=== PATIENT | female | born 1975 | race African-American/Black ===

== ENCOUNTER 2016-08-03 16:02 | Emergency (ER) | payer MEDICAID ==
[~2016-08-03] VITALS: Ht 160 cm; Wt 120.0 kg
[~2016-08-03 16:02] MED LIST: ADVAI250I PO; ALBU1AER INH; IBUP600T26 PO; LEVO50TA4 PO; LORA5SOL3 PO; METF500 PO; MONT10TA2 PO; PROZ40CA PO; RISP4TAB2 PO; TRIA37.512 PO; TRIH5 PO
[2016-08-03 16:05] VITALS: BP 124/69; PULSE 130; RESP 20; TEMP 99.5; O2SAT 96
--- NOTE | 2016-08-03 17:11 | PD ---
Physical Exam Date Seen by Provider: August 03, 2016 Time Seen by Provider: 17:09 Narrative Pt presents with bilateral leg cramping and pain for the last few months. Worse with walking and at night. Pt states she told her PCP but no treatment per her report. Pt denies any PMHx. VSS, awaiting bed placement. Data Data Last Documented VS Vital Signs Date Time Temp Pulse Resp B/P Pulse Ox O2 Delivery O2 Flow Rate FiO2 08/03/16 16:05 99.5 130 20 124/69 96 Room Air MDM Supervised Visit with ABDON: Diana Velázquez August 03, 2016 17:11
[2016-08-03] MEDS ORDERED: TRIH5TAB2 PO (18:10)
[2016-08-03] MEDS ORDERED: PROZ40CA PO (18:10)
[2016-08-03] MEDS ORDERED: LEVO.05 PO (18:10)
[2016-08-03 18:41] LABS: AUTOMATED NEUTROPHIL # 5.5 TH/MM3 (1.8-7.7); BASOPHIL # 0.1 TH/MM3 (0-0.2); BASOPHIL % 1.6 % (0.0-2.0); EOSINOPHIL # 0.1 TH/MM3 (0-0.4); EOSINOPHIL % 1.6 % (0.0-4.0); HEMATOCRIT 39.5 % (35.0-46.0); HEMO FLAGS DIFF FINAL; LYMPH % 21.5 % (9.0-44.0); LYMPHOCYTE # 1.8 TH/MM3 (1.0-4.8); MEAN CELL VOLUME 81.4 FL (80.0-100.0); MEAN CORPUSCULAR HEMOGLOBIN 26.1 PG (27.0-34.0); MEAN CORPUSCULAR HGB CONC 32.1 % (32.0-36.0); NEUT % 67.3 % (16.0-70.0); PLATELET COUNT 306 TH/MM3 (150-450); RED BLOOD COUNT 4.86 MIL/MM3 (4.00-5.30); RED CELL DISTRIBUTION WIDTH 14.9 % (11.6-17.2); WHITE BLOOD COUNT 8.2 TH/MM3 (4.0-11.0)
[2016-08-03 18:58] LABS: BICARBONATE 21.4 MEQ/L (21.0-32.0)
--- NOTE | 2016-08-03 19:25 | PD ---
HPI Chief Complaint: Pain: Acute or Chronic Time Seen by Provider: 18:01 Travel History International Travel<30 days: No Contact w/Intl Traveler<30days: No Traveled to known affect area: No History of Present Illness HPI Patient is a 41-year-old female who presents to emergency room for evaluation of bilateral lower extremity pain and cramping. Patient reports that for the past 2 months, she has had increased cramping to her calfs. Patient denies any history of PE or DVT, denies any recent travels/trips. Reports no chest pain/ sob. NO other c/o. PFSH Past Medical History Arthritis: No Asthma: Yes Autoimmune Disease: No Blood Disorders: No Bipolar Disorder: Yes Anxiety: Yes Depression: Yes Heart Rhythm Problems: No Cancer: No Cardiovascular Problems: No High Cholesterol: No Chemotherapy: No Chest Pain: No Congestive Heart Failure: No COPD: No Cerebrovascular Accident: No Diabetes: Yes Diminished Hearing: No Endocrine: No Gastrointestinal Disorders: No Glaucoma: No Genitourinary: No Headaches: Yes Hepatitis: No Hypertension: No Immune Disorder: No Kidney Stones: No Musculoskeletal: No Neurologic: No Psychiatric: Yes Reproductive: No Respiratory: Yes Migraines: No Myocardial Infarction: No Radiation Therapy: No Renal Failure: No Schizophrenia: Yes Seizures: No Sickle Cell Disease: No Sleep Apnea: No Thyroid Disease: Yes Tetanus Vaccination: > 5 Years Influenza Vaccination: Yes ?: Not : 2 Para: 2 Miscarriage: 0 : 0 Tubal Ligation: Yes Past Surgical History Abdominal Surgery: Yes () AICD: No Arteriovenous Shunt: No Cardiac Surgery: No Section: Yes Cholecystectomy: No Ear Surgery: No Endocrine Surgery: No Eye Surgery: No Genitourinary Surgery: No Gynecologic Surgery: Yes (tube ligation) Insulin Pump: No Joint Replacement: No Neurologic Surgery: No Oral Surgery: No Pacemaker: No Thoracic Surgery: No Other Surgery: Yes (THYROID REMOVED) Social History Alcohol Use: No Tobacco Use: No Substance Use: No (DENIED) Allergies-Medications (Allergen,Severity, Reaction): Coded Allergies: No Known Allergies (Verified , 08/03/16) Reported Meds & Prescriptions Reported Meds & Active Scripts Active Reported Trihexyphenidyl (Trihexyphenidyl HCl) 5 Mg Tab 5 Mg PO HS Synthroid (Levothyroxine Sodium) 50 Mcg Tab 50 Mcg PO DAILY Prozac (Fluoxetine HCl) 40 Mg Cap 40 Mg PO DAILY Review of Systems General / Constitutional: No: Fever Eyes: No: Visual changes HENT: No: Headaches Cardiovascular: No: Chest Pain or Discomfort Respiratory: No: Shortness of Breath Gastrointestinal: No: Abdominal Pain Genitourinary: No: Dysuria Musculoskeletal: Positive: Cramping (b/l le's), Pain Skin: No Rash Neurologic: No: Weakness Psychiatric: No: Depression Endocrine: No: Polydipsia Hematologic/Lymphatic: No: Easy Bruising Physical Exam Narrative GENERAL: nad, nontoxic SKIN: Focused skin assessment warm/dry. HEAD: Atraumatic. Normocephalic. EYES: Pupils equal and round. No scleral icterus. No injection or drainage. ENT: No nasal bleeding or discharge. Mucous membranes pink and moist. NECK: Trachea midline. No JVD. CARDIOVASCULAR: Regular rate and rhythm. No murmur appreciated. RESPIRATORY: No accessory muscle use. Clear to auscultation. Breath sounds equal bilaterally. GASTROINTESTINAL: Abdomen soft, non-tender, nondistended. Hepatic and splenic margins not palpable. MUSCULOSKELETAL: No obvious deformities. No clubbing. No cyanosis. patient with cramping and pain to her calfs b/l NEUROLOGICAL: Awake and alert. No obvious cranial nerve deficits. Motor grossly within normal limits. Normal speech. PSYCHIATRIC: Appropriate mood and affect; insight and judgment normal. Data Data Last Documented VS Vital Signs Date Time Temp Pulse Resp B/P Pulse Ox O2 Delivery O2 Flow Rate FiO2 08/03/16 19:33 104 18 104/58 97 Room Air 08/03/16 16:05 99.5 Orders Basic Metabolic Panel (Bmp) (08/03/16 18:06) Complete Blood Count With Diff (08/03/16 18:06) Prothrombin Time / Inr (Pt) (08/03/16 18:06) Act Partial Throm Time (Ptt) (08/03/16 18:06) Ed Urine Pregnancytest Poc (08/03/16 18:06) Us Leg Venous Doppler Bilat (08/03/16 ) Sodium Chlor 0.9% 1000 Ml Inj (Ns 1000 M (08/03/16 19:30) Labs Laboratory Tests Test 08/03/16 08/03/16 18:11 18:50 White Blood Count 8.2 TH/MM3 Red Blood Count 4.86 MIL/MM3 Hemoglobin 12.7 GM/DL Hematocrit 39.5 % Mean Corpuscular Volume 81.4 FL Mean Corpuscular Hemoglobin 26.1 PG Mean Corpuscular Hemoglobin 32.1 % Concent Red Cell Distribution Width 14.9 % Platelet Count 306 TH/MM3 Mean Platelet Volume 8.5 FL Neutrophils (%) (Auto) 67.3 % Lymphocytes (%) (Auto) 21.5 % Monocytes (%) (Auto) 8.0 % Eosinophils (%) (Auto) 1.6 % Basophils (%) (Auto) 1.6 % Neutrophils # (Auto) 5.5 TH/MM3 Lymphocytes # (Auto) 1.8 TH/MM3 Monocytes # (Auto) 0.6 TH/MM3 Eosinophils # (Auto) 0.1 TH/MM3 Basophils # (Auto) 0.1 TH/MM3 CBC Comment DIFF FINAL Differential Comment Sodium Level 141 MEQ/L Potassium Level 4.0 MEQ/L Chloride Level 110 MEQ/L Carbon Dioxide Level 21.4 MEQ/L Anion Gap 10 MEQ/L Blood Urea Nitrogen 12 MG/DL Creatinine 1.10 MG/DL Estimat Glomerular Filtration 66 ML/MIN Rate Random Glucose 100 MG/DL Calcium Level 8.5 MG/DL Prothrombin Time 10.6 SEC Prothromb Time International 1.0 RATIO Ratio Activated Partial 27.1 SEC Thromboplast Time MDM Medical Decision Making Medical Screen Exam Complete: Yes Emergency Medical Condition: Yes Interpretation(s) Vital Signs Date Time Temp Pulse Resp B/P Pulse Ox O2 Delivery O2 Flow Rate FiO2 08/03/16 18:10 17 08/03/16 16:05 99.5 130 20 124/69 96 Room Air Differential Diagnosis dvt/pe, electrolyte abnormality Narrative Course Patient is a 41 year old female who presents to ER for evaluation of leg cramping x 2 months. Patient nontoxic on evaluation. labs as well as US of legs ordered to evaluate for DVT Last Impressions Lower Extremity Ultrasound 08/03/16 0000 Signed Impressions: Service Date/Time: July 20:41 - CONCLUSION: Normal examination. Jaun Souza MD Laboratory Tests Test 08/03/16 08/03/16 18:11 18:50 White Blood Count 8.2 TH/MM3 (4.0-11.0) Red Blood Count 4.86 MIL/MM3 (4.00-5.30) Hemoglobin 12.7 GM/DL (11.6-15.3) Hematocrit 39.5 % (35.0-46.0) Mean Corpuscular Volume 81.4 FL (80.0-100.0) Mean Corpuscular Hemoglobin 26.1 PG (27.0-34.0) Mean Corpuscular Hemoglobin 32.1 % Concent (32.0-36.0) Red Cell Distribution Width 14.9 % (11.6-17.2) Platelet Count 306 TH/MM3 (150-450) Mean Platelet Volume 8.5 FL (7.0-11.0) Neutrophils (%) (Auto) 67.3 % (16.0-70.0) Lymphocytes (%) (Auto) 21.5 % (9.0-44.0) Monocytes (%) (Auto) 8.0 % (0.0-8.0) Eosinophils (%) (Auto) 1.6 % (0.0-4.0) Basophils (%) (Auto) 1.6 % (0.0-2.0) Neutrophils # (Auto) 5.5 TH/MM3 (1.8-7.7) Lymphocytes # (Auto) 1.8 TH/MM3 (1.0-4.8) Monocytes # (Auto) 0.6 TH/MM3 (0-0.9) Eosinophils # (Auto) 0.1 TH/MM3 (0-0.4) Basophils # (Auto) 0.1 TH/MM3 (0-0.2) CBC Comment DIFF FINAL Differential Comment Sodium Level 141 MEQ/L (136-145) Potassium Level 4.0 MEQ/L (3.5-5.1) Chloride Level 110 MEQ/L (98-107) Carbon Dioxide Level 21.4 MEQ/L (21.0-32.0) Anion Gap 10 MEQ/L (5-15) Blood Urea Nitrogen 12 MG/DL (7-18) Creatinine 1.10 MG/DL (0.50-1.00) Estimat Glomerular Filtration 66 ML/MIN (>89) Rate Random Glucose 100 MG/DL (74-106) Calcium Level 8.5 MG/DL (8.5-10.1) Prothrombin Time 10.6 SEC (9.8-11.6) Prothromb Time International 1.0 RATIO Ratio Activated Partial 27.1 SEC Thromboplast Time (24.3-30.1) VSS. i reviewed all labs and studies with patient in detail. signs and symptoms of when to return to ER was reviewed with patient in detail. patient will have a repeat US in 1 week if symptoms persist Diagnosis Primary Impression: Leg cramping Additional Impression: Dehydration Patient Instructions: General Instructions Additional Instructions: Please follow-up with your primary care doctor Return to emergency room if symptoms worsen or persist or return Return to the emergency room as needed Please have your ultrasound repeated in 1 week if cramping persists Disposition: 01 DISCHARGE HOME Condition: Stable Madelyn Martin DO August 03, 2016 19:25
[2016-08-03 19:26] LABS: APTT (PATIENT) 27.1 SEC (24.3-30.1); PROTHROMBIN TIME - PATIENT 10.6 SEC (9.8-11.6)
[2016-08-03] MEDS ORDERED: SODIUM CHLOR 0.9% 1000 ML INJ 1,000 ML IV ONE (19:30)
[2016-08-03 19:33] VITALS: BP 104/58; PULSE 104; RESP 18; O2SAT 97
--- NOTE | 2016-08-03 21:39 | RADRPT ---
EXAM DATE/TIME: 08/03/2016 20:41 [facility] COMPARISON: No previous studies available for comparison. INDICATIONS : Bilateral leg pain. MEDICAL HISTORY : Thyroid disease. Asthma. Diabetes. Depression. Schizophrenia. Bipolar disorder. Anxiety. SURGICAL HISTORY : section.Tubal ligation. Thyroidectomy. ENCOUNTER: Initial ACUITY: 1 week PAIN SCORE: 8/10 LOCATION: Bilateral leg. TECHNIQUE: Venous ultrasound of the left and right leg was performed from the inguinal ligament to the proximal calf. Real-time, color Doppler and spectral tracing, compression and augmentation techniques were us ed. FINDINGS: RIGHT LEG: There is normal compressibility of the deep venous system from the inguinal region to the proximal ca lf. No echogenic clot is seen in the lumen of the common femoral, femoral, popliteal, and posterior tibial veins. There is a normal response of the venous system to proximal and distal augmentation an d respiration. LEFT LEG: There is normal compressibility of the deep venous system from the inguinal region to the proximal ca lf. No echogenic clot is seen in the lumen of the common femoral, femoral, popliteal, and posterior tibial veins. There is a normal response of the venous system to proximal and distal augmentation an d respiration. CONCLUSION: Normal examination. Jaun oSuza MD on August 03, 2016 at 21:37 Board Certified Radiologist. This report was verified electronically.
[2016-08-03 22:20] VITALS: BP 105/74
== END 2016-08-03 22:20 | disposition home or self-care (01) ==
LOC: NEPD 16:02
DX: M62.831 Muscle spasm of calf (principal); E86.0 Dehydration; M79.604 Pain in right leg; J45.909 Unspecified asthma, uncomplicated; E11.9 Type 2 diabetes mellitus without complications
CPT/HCPCS: 80048; 84703; 85025; 85610; 85730; 93970; 99284; J7030

== ENCOUNTER 2016-10-12 12:03 | Emergency (ER) | payer SELFPAY ==
[~2016-10-12] VITALS: Ht 160 cm; Wt 110.0 kg
[~2016-10-12 12:03] MED LIST changes: -ADVAI250I PO; -ALBU1AER INH; -IBUP600T26 PO; +LEVO.05 PO; -LEVO50TA4 PO; -LORA5SOL3 PO; -METF500 PO; -MONT10TA2 PO; -RISP4TAB2 PO; -TRIA37.512 PO; -TRIH5 PO; +TRIH5TAB2 PO
[2016-10-12 12:06] VITALS: BP 114/65; PULSE 100; RESP 20; TEMP 98.7; O2SAT 99
--- NOTE | 2016-10-12 12:21 | PD ---
Physical Exam Time Seen by Provider: 12:20 Narrative 41 y/o female with hx of asthma presents with sob, h/a for 2 days. Vital signs reviewed. Seen at triage desk. Awaiting bed placement. Data Data Last Documented VS Vital Signs Date Time Temp Pulse Resp B/P Pulse Ox O2 Delivery O2 Flow Rate FiO2 10/12/16 12:06 98.7 100 20 114/65 99 Room Air [facility] Medical Record Reviewed: Yes Supervised Visit with ABDON: Joe Self Oct 12, 2016 12:21
--- NOTE | 2016-10-12 12:29 | PD ---
HPI . sob yesterday Chief Complaint: Respiratory Distress Time Seen by Provider: 12:29 Travel History International Travel<30 days: No Contact w/Intl Traveler<30days: No Traveled to known affect area: No History of Present Illness HPI 41-year-old female with history of asthma here with complaints of shortness of breath. Patient says that she was intermittently short of breath for the past 2 days, and this happened yesterday. She is not short of breath today. She does have a history of asthma and uses a rescue inhaler at home. Patient tells me that she thinks she may have had an asthma attack yesterday and she wanted to come to the emergency department to be checked out. At this point she is in no signs of respiratory distress. She does not demonstrate any shortness of breath, coughing or airway compromise. She denies any other complaints. PFSH Past Medical History Arthritis: No Asthma: Yes Autoimmune Disease: No Blood Disorders: No Bipolar Disorder: Yes Anxiety: Yes Depression: Yes Heart Rhythm Problems: No Cancer: No Cardiovascular Problems: No High Cholesterol: No Chemotherapy: No Chest Pain: No Congestive Heart Failure: No COPD: No Cerebrovascular Accident: No Diabetes: Yes Diminished Hearing: No Endocrine: No Gastrointestinal Disorders: No Glaucoma: No Genitourinary: No Headaches: Yes Hepatitis: No Hypertension: No Immune Disorder: No Kidney Stones: No Musculoskeletal: No Neurologic: No Psychiatric: Yes Reproductive: No Respiratory: Yes (HX ASTHMA ) Migraines: No Myocardial Infarction: No Radiation Therapy: No Renal Failure: No Schizophrenia: Yes Seizures: No Sickle Cell Disease: No Sleep Apnea: No Thyroid Disease: Yes : 2 Para: 2 Miscarriage: 0 : 0 Tubal Ligation: Yes Past Surgical History Abdominal Surgery: Yes () AICD: No Arteriovenous Shunt: No Cardiac Surgery: No Section: Yes Cholecystectomy: No Ear Surgery: No Endocrine Surgery: No Eye Surgery: No Genitourinary Surgery: No Gynecologic Surgery: Yes (tube ligation) Insulin Pump: No Joint Replacement: No Neurologic Surgery: No Oral Surgery: No Pacemaker: No Thoracic Surgery: No Other Surgery: Yes (THYROID REMOVED) Social History Alcohol Use: No Tobacco Use: No Substance Use: No (DENIED) Allergies-Medications (Allergen,Severity, Reaction): Coded Allergies: No Known Allergies (Verified , 08/03/16) Reported Meds & Prescriptions Reported Meds & Active Scripts Active Reported Trihexyphenidyl (Trihexyphenidyl HCl) 5 Mg Tab 5 Mg PO HS Synthroid (Levothyroxine Sodium) 50 Mcg Tab 50 Mcg PO DAILY Prozac (Fluoxetine HCl) 40 Mg Cap 40 Mg PO DAILY Review of Systems General / Constitutional: No: Fever Eyes: No: Visual changes HENT: No: Headaches Cardiovascular: No: Chest Pain or Discomfort Respiratory: No: Shortness of Breath Gastrointestinal: No: Abdominal Pain Genitourinary: No: Dysuria Musculoskeletal: No: Pain Skin: No Rash Neurologic: No: Weakness Psychiatric: No: Depression Endocrine: No: Polydipsia Hematologic/Lymphatic: No: Easy Bruising Physical Exam Narrative GENERAL: AAO x 3, no acute distress, Well-nourished, well-developed patient. SKIN: Warm and dry. No visible rashes or bruising. HEAD: Normocephalic and atraumatic. EYES: No scleral icterus. No injection or drainage. ENT: No nasal drainage noted. Mucous membranes pink. Airway patent. No oropharynx abnormality NECK: Supple, trachea midline. No JVD. No lymphadenopathy CARDIOVASCULAR: Regular rate and rhythm without murmurs, gallops, or rubs. RESPIRATORY: Breath sounds equal bilaterally. No accessory muscle use. No rhonchi or rales. No wheezing GASTROINTESTINAL: Visual inspection normal EXTREMITIES: No cyanosis or edema. BACK: No obvious deformity. NEURO: CN II-12 intact, PSYCH: AAO x 3, normal affect. Data Data Last Documented VS Vital Signs Date Time Temp Pulse Resp B/P Pulse Ox O2 Delivery O2 Flow Rate FiO2 10/12/16 12:06 98.7 100 20 114/65 99 Room Air MDM Medical Decision Making Medical Screen Exam Complete: Yes Emergency Medical Condition: Yes Medical Record Reviewed: Yes Differential Diagnosis History of asthma, viral syndrome, less likely influenza, less likely pneumonia Narrative Course 41-year-old female here with 2 days of shortness of breath that last happened yesterday. On examination patient is aerating well on room air and in no signs of respiratory distress. Her examination is unremarkable. I recommend follow-up with her primary care provider for further workup with her asthma. It is possible she may need a longer acting inhaler. Patient verbalized understanding of instructions, questions were answered, and thanked me for their care. I advised them if their condition worsens, please return to the nearest emergency room for further care. Diagnosis Primary Impression: History of asthma Patient Instructions: General Instructions Additional Instructions: Please follow-up with your primary care provider. Med/Other Pt SpecificInfo: No Change to Meds Disposition: 01 DISCHARGE HOME Condition: Stable Sonya Sheridan Oct 12, 2016 12:29
== END 2016-10-12 12:52 | disposition home or self-care (01) ==
LOC: NEPK 12:03
DX: J45.909 Unspecified asthma, uncomplicated (principal)
CPT/HCPCS: 99281

== ENCOUNTER 2016-12-16 13:44 | Emergency (ER) | payer MEDICAID ==
[~2016-12-16] VITALS: Ht 160 cm; Wt 110.0 kg
[2016-12-16 13:45] VITALS: BP 120/73; PULSE 84; RESP 20; TEMP 98.6; O2SAT 99
--- NOTE | 2016-12-16 14:12 | PD ---
Physical Exam Date Seen by Provider: Dec 16, 2016 Time Seen by Provider: 14:10 Narrative 41-year-old Afro-[place] female presents the emergency department with 2 week history of left foot pain on the bottom of her foot. It is worse with ambulation. Patient states no specific injury or wound. Patient denies diabetes. Patient states she's been trying to keep it wrapped, and taking pain medication without improvement. Patient denies fever chills or other symptoms. Pain is a 9 out of 10, and worse with palpation and ambulation. X-ray of the left foot is ordered. Vital signs stable. Patient is awaiting bed placement. Data Data Last Documented VS Vital Signs Date Time Temp Pulse Resp B/P (MAP) Pulse Ox O2 Delivery O2 Flow Rate FiO2 12/16/16 13:45 98.6 84 20 120/73 (89) 99 Room Air [facility] Medical Record Reviewed: Yes Supervised Visit with ABDON: Yes Condition: Stable Stevan Narayanan Dec 16, 2016 14:12
--- NOTE | 2016-12-16 14:36 | PD ---
HPI Chief Complaint: Musculoskeletal Complaint Time Seen by Provider: 14:20 Travel History International Travel<30 days: No Contact w/Intl Traveler<30days: No Traveled to known affect area: No History of Present Illness HPI 41-year-old -[place] female presents to the emergency department with complaint of left foot pain. Patient says onset of pain occurred approximately 2 weeks ago. She describes the pain as constant but worse with ambulation. She describes the pain as sharp and stabbing in nature. She denies any injury or trauma occurring to the left foot. There is no swelling, ecchymosis, erythema, obvious deformity or signs or symptoms of infection or inflammation noted in the left foot. Patient denies any history of diabetes. Patient states she does not take any daily medication at this time. Patient denies chest pain, shortness breath, fever, chills, malaise, abdominal pain, nausea, vomiting, diarrhea or lightheadedness. PFSH Past Medical History Arthritis: No Asthma: Yes Autoimmune Disease: No Blood Disorders: No Bipolar Disorder: Yes Anxiety: Yes Depression: Yes Heart Rhythm Problems: No Cancer: No Cardiovascular Problems: No High Cholesterol: No Chemotherapy: No Chest Pain: No Congestive Heart Failure: No COPD: No Cerebrovascular Accident: No Diabetes: Yes Patient Takes Glucophage: No Diminished Hearing: No Endocrine: No Gastrointestinal Disorders: No Glaucoma: No Genitourinary: No Headaches: Yes Hepatitis: No Hypertension: No Immune Disorder: No Kidney Stones: No Musculoskeletal: No Neurologic: No Psychiatric: Yes Reproductive: No Respiratory: Yes (HX ASTHMA ) Immunizations Current: Yes Migraines: No Myocardial Infarction: No Radiation Therapy: No Renal Failure: No Schizophrenia: Yes Seizures: No Sickle Cell Disease: No Sleep Apnea: No Thyroid Disease: Yes ?: Not LMP: long time ago : 2 Para: 2 Miscarriage: 0 : 0 Tubal Ligation: Yes Past Surgical History Abdominal Surgery: Yes () AICD: No Arteriovenous Shunt: No Cardiac Surgery: No Section: Yes Cholecystectomy: No Ear Surgery: No Endocrine Surgery: No Eye Surgery: No Genitourinary Surgery: No Gynecologic Surgery: Yes ( ) Insulin Pump: No Joint Replacement: No Neurologic Surgery: No Oral Surgery: No Pacemaker: No Thoracic Surgery: No Other Surgery: Yes (THYROID REMOVED) Social History Alcohol Use: No Tobacco Use: No Substance Use: No ( ) Allergies-Medications (Allergen,Severity, Reaction): Coded Allergies: No Known Allergies (Verified , 12/16/16) Reported Meds & Prescriptions Reported Meds & Active Scripts Active Motrin Ib (Ibuprofen) 200 Mg Tablet 400 Mg PO Q6HR PRN Review of Systems Except as stated in HPI: all other systems reviewed are Neg Physical Exam Narrative GENERAL: Well-nourished well-developed 41-year-old -[place] female in no acute distress SKIN: Focused skin assessment warm/dry. HEAD: Atraumatic. Normocephalic. EYES: Pupils equal and round. No scleral icterus. No injection or drainage. ENT: No nasal bleeding or discharge. Mucous membranes pink and moist. NECK: Trachea midline. No JVD. CARDIOVASCULAR: Regular rate and rhythm. No murmur appreciated. Pedal pulses palpated bilaterally. Capillary refill within normal limits bilaterally. RESPIRATORY: No accessory muscle use. Clear to auscultation. Breath sounds equal bilaterally. GASTROINTESTINAL: Abdomen soft, non-tender, nondistended. Hepatic and splenic margins not palpable. MUSCULOSKELETAL: No obvious deformities. No clubbing. No cyanosis. No edema. Full dorsi and plantar flexion noted bilaterally. NEUROLOGICAL: Awake and alert. No obvious cranial nerve deficits. Motor grossly within normal limits. Normal speech. PSYCHIATRIC: Appropriate mood and affect; insight and judgment normal. Data Data Last Documented VS Vital Signs Date Time Temp Pulse Resp B/P (MAP) Pulse Ox O2 Delivery O2 Flow Rate FiO2 12/16/16 13:45 98.6 84 20 120/73 (89) 99 Room Air Orders Orders Foot, Complete ([id number]) (12/16/16 14:13) Ice/Cold Pack (12/16/16 14:13) [facility] Medical Decision Making Medical Screen Exam Complete: Yes Emergency Medical Condition: Yes Medical Record Reviewed: Yes Differential Diagnosis Differential diagnoses include but are not limited to plantar fasciitis, peripheral neuropathy, osteoarthritis, rheumatoid arthritis, foot fracture Narrative Course 41-year-old female in no acute distress presents to the emergency department for evaluation of left foot pain that started approximately 2 weeks ago. Patient denies any injury or trauma to the left foot. Patient states the pain is sharp and stabbing in nature and worse with ambulation. Full range of motion noted with dorsi and plantar flexion in bilateral feet. Bilateral pedal pulses palpated. Capillary refill within normal limits bilaterally. Patient denies chest pain, shortness breath, fever, malaise, abdominal pain, nausea, vomiting, diarrhea or lightheadedness. X-ray of the left foot ordered and pending. X-ray of the left foot is unremarkable. After physical assessment and test results there is no need for patient to be admitted to the hospital or for further evaluation in the emergency department. Patient will be discharged home with a prescription for Motrin and instructions to follow up with her primary care physician. Diagnosis Primary Impression: Plantar fasciitis of left foot Referrals: Primary Care Physician Patient Instructions: General Instructions, Plantar Fasciitis (ED) Additional Instructions: Take Motrin as directed as needed for pain. May elevate foot at night. Follow-up with primary care regarding foot pain. Return to the emergency Department with any worsening symptoms or emergent conditions. Med/Other Pt SpecificInfo: Prescription(s) given Scripts Ibuprofen (Motrin Ib) 200 Mg Tablet 400 MG PO Q6HR Y for pain, #12 Prov: Aleah Collado 12/16/16 Disposition: 01 DISCHARGE HOME Condition: Stable Aleah Collado Dec 16, 2016 14:36
--- NOTE | 2016-12-16 15:13 | RADRPT ---
EXAM DATE/TIME: 12/16/2016 14:27 [facility] COMPARISON: FOOT LEFT COMPLETE ([id number]), August 24, 2013, 18:21. INDICATIONS : Left foot pain for 1 week with no known injury MEDICAL HISTORY : None. SURGICAL HISTORY : None. ENCOUNTER: Initial ACUITY: 1 week PAIN SCORE: 10/10 LOCATION: Left plantar surface of foot FINDINGS: Three view examination of the left foot demonstrates no soft tissue swelling, dislocation, or fractur e. The tarsal bones appear intact. The interphalangeal and metatarsophalangeal joints are intact. The calcaneus is intact. Bony mineralization is normal. CONCLUSION: Unremarkable exam. Vijay Aquino MD on December 16, 2016 at 15:10 Board Certified Radiologist. This report was verified electronically.
[2016-12-16] MEDS ORDERED: IBUP-1129 PO (15:28)
== END 2016-12-16 15:56 | disposition home or self-care (01) ==
LOC: NEPD 13:44
DX: M72.2 Plantar fascial fibromatosis (principal)
CPT/HCPCS: 73630; 99283

== ENCOUNTER 2017-02-09 13:58 | Emergency (ER) | payer MEDICAID ==
[~2017-02-09] VITALS: Ht 160 cm; Wt 120.0 kg
[~2017-02-09 13:58] MED LIST changes: +IBUP-1129 PO; -LEVO.05 PO; -PROZ40CA PO; -TRIH5TAB2 PO
[2017-02-09 14:00] VITALS: BP 154/85; PULSE 107; RESP 14; TEMP 97.7; O2SAT 99
--- NOTE | 2017-02-09 17:51 | PD ---
HPI Chief Complaint: Committee Member Problem/Complaint Time Seen by Provider: 17:25 Travel History International Travel<30 days: No Contact w/Intl Traveler<30days: No Traveled to known affect area: No History of Present Illness HPI 41-year-old female presents to the emergency room for evaluation of heavy vaginal bleeding. Patient states she started her menstrual cycle yesterday. She has not had a menstrual cycle since May because she was receiving the Depo -Provera shot. She last had an injection in May and has not been able to have one since because of insurance reasons. She went to the health department yesterday where she was told that if she goes to the emergency room to meet her share of cost, she will be able to follow up to get the shot. Patient states she has been taking 400 mg of ibuprofen without any relief in cramping. States she is having significant bleeding, going through multiple pads per day. She has not been on her medication since September because of insurance reasons. PFSH Past Medical History Arthritis: No Asthma: Yes Autoimmune Disease: No Blood Disorders: No Bipolar Disorder: Yes Anxiety: Yes Depression: Yes Heart Rhythm Problems: No Cancer: No Cardiovascular Problems: No High Cholesterol: No Chemotherapy: No Chest Pain: No Congestive Heart Failure: No COPD: No Cerebrovascular Accident: No Diabetes: Yes Diminished Hearing: No Endocrine: No Gastrointestinal Disorders: No Glaucoma: No Genitourinary: No Headaches: Yes Hepatitis: No Hypertension: No Immune Disorder: No Kidney Stones: No Musculoskeletal: No Neurologic: No Psychiatric: Yes Reproductive: No Respiratory: Yes (HX ASTHMA ) Immunizations Current: Yes Migraines: No Myocardial Infarction: No Radiation Therapy: No Renal Failure: No Schizophrenia: Yes Seizures: No Sickle Cell Disease: No Sleep Apnea: No Thyroid Disease: Yes ?: Not LMP: 02/08/17 : 2 Para: 2 Miscarriage: 0 : 0 Tubal Ligation: Yes Past Surgical History Abdominal Surgery: Yes () AICD: No Arteriovenous Shunt: No Cardiac Surgery: No Section: Yes Cholecystectomy: No Ear Surgery: No Endocrine Surgery: No Eye Surgery: No Genitourinary Surgery: No Gynecologic Surgery: Yes ( ) Insulin Pump: No Joint Replacement: No Neurologic Surgery: No Oral Surgery: No Pacemaker: No Thoracic Surgery: No Other Surgery: Yes (THYROID REMOVED) Social History Alcohol Use: No Tobacco Use: No Substance Use: No ( ) Allergies-Medications (Allergen,Severity, Reaction): Coded Allergies: No Known Allergies (Verified , 12/16/16) Reported Meds & Prescriptions Reported Meds & Active Scripts Active Motrin Ib (Ibuprofen) 200 Mg Tablet 400 Mg PO Q6HR PRN Review of Systems Except as stated in HPI: all other systems reviewed are Neg Physical Exam Narrative GENERAL: Well-nourished, morbidly obese female in no acute distress. Afebrile. Ambulatory. SKIN: Focused skin assessment warm/dry. HEAD: Normocephalic. EYES: No scleral icterus. No injection or drainage. NECK: Supple, trachea midline. No JVD or lymphadenopathy. CARDIOVASCULAR: Regular rate and rhythm without murmurs, gallops, or rubs. RESPIRATORY: Breath sounds equal bilaterally. No accessory muscle use. GASTROINTESTINAL: Abdomen soft, non-tender, nondistended. Data Data Last Documented VS Vital Signs Date Time Temp Pulse Resp B/P (MAP) Pulse Ox O2 Delivery O2 Flow Rate FiO2 02/09/17 19:02 02/09/17 17:32 16 02/09/17 14:00 97.7 107 99 Orders Orders Complete Blood Count With Diff (02/09/17 17:40) Ed Urine Pregnancytest Poc (02/09/17 17:40) Ed Discharge Order (02/09/17 18:23) Labs Laboratory Tests Test 02/09/17 17:45 White Blood Count 6.6 TH/MM3 Red Blood Count 4.84 MIL/MM3 Hemoglobin 13.9 GM/DL Hematocrit 40.2 % Mean Corpuscular Volume 83.1 FL Mean Corpuscular Hemoglobin 28.7 PG Mean Corpuscular Hemoglobin Concent 34.6 % Red Cell Distribution Width 14.4 % Platelet Count 304 TH/MM3 Mean Platelet Volume 8.7 FL Neutrophils (%) (Auto) 58.2 % Lymphocytes (%) (Auto) 31.7 % Monocytes (%) (Auto) 6.8 % Eosinophils (%) (Auto) 2.7 % Basophils (%) (Auto) 0.6 % Neutrophils # (Auto) 3.9 TH/MM3 Lymphocytes # (Auto) 2.1 TH/MM3 Monocytes # (Auto) 0.4 TH/MM3 Eosinophils # (Auto) 0.2 TH/MM3 Basophils # (Auto) 0.0 TH/MM3 CBC Comment DIFF FINAL Differential Comment MDM Medical Decision Making Medical Screen Exam Complete: Yes Emergency Medical Condition: Yes Medical Record Reviewed: Yes Differential Diagnosis Normal menstrual cycle, , heavy vaginal bleeding, anemia, malingering, control request Narrative Course 41-year-old female presents to the emergency room for evaluation of heavy vaginal bleeding and. Cramps that started yesterday. Patient states she has not had a menstrual cycle since May which was the last time she had her Depo- Provera shot. He has not been able to get her shots and sent because of insurance reasons. States she was told if she comes today she will meet her share of cost and it will help her to get her medication. Patient is well- appearing. Vital signs stable. No evidence of dehydration or anemia on exam. Abdomen soft, nontender. test is negative. CBC is completely unremarkable. Patient was discharged with instructions to take ibuprofen for pain and follow up with an [facility] for her next Depo shot. Told to return for worsening symptoms. She understands and agrees to plan. Patient was cantankerous on discharge because she did not receive a Depo shot today and states she will be back for one later because she does not have enough money to follow up as an outpatient as she has not met her share of cost. Diagnosis Primary Impression: Menstrual cramp Referrals: [facility] Additional Instructions: Rest and drink plenty of fluids. Take ibuprofen with food as directed, as needed for pain. Apply ice to the affected area for 20 minutes at a time, as needed for pain and swelling. Follow-up with a primary care physician. Return to the emergency room for worsening symptoms. Disposition: 01 DISCHARGE HOME Condition: Stable Christy Saleh Feb 09, 2017 17:51
[2017-02-09 18:04] LABS: AUTOMATED NEUTROPHIL # 3.9 TH/MM3 (1.8-7.7); BASOPHIL % 0.6 % (0.0-2.0); EOSINOPHIL # 0.2 TH/MM3 (0-0.4); EOSINOPHIL % 2.7 % (0.0-4.0); HEMATOCRIT 40.2 % (35.0-46.0); HEMO FLAGS DIFF FINAL; LYMPH % 31.7 % (9.0-44.0); LYMPHOCYTE # 2.1 TH/MM3 (1.0-4.8); MEAN CELL VOLUME 83.1 FL (80.0-100.0); MEAN CORPUSCULAR HEMOGLOBIN 28.7 PG (27.0-34.0); MEAN CORPUSCULAR HGB CONC 34.6 % (32.0-36.0); MONO % 6.8 % (0.0-8.0); NEUT % 58.2 % (16.0-70.0); PLATELET COUNT 304 TH/MM3 (150-450); RED BLOOD COUNT 4.84 MIL/MM3 (4.00-5.30); RED CELL DISTRIBUTION WIDTH 14.4 % (11.6-17.2); WHITE BLOOD COUNT 6.6 TH/MM3 (4.0-11.0)
== END 2017-02-09 20:16 | disposition home or self-care (01) ==
LOC: NEPD 13:58
DX: N94.6 Dysmenorrhea, unspecified (principal)
CPT/HCPCS: 84703; 85025; 99283

== ENCOUNTER 2017-03-23 15:00 | Emergency (ER) | payer MEDICAID ==
[~2017-03-23] VITALS: Ht 160 cm; Wt 90.5 kg
[2017-03-23 15:02] VITALS: BP 135/82; PULSE 87; RESP 18; TEMP 98.6; O2SAT 100
--- NOTE | 2017-03-23 16:28 | PD ---
HPI Chief Complaint: Musculoskeletal Complaint Time Seen by Provider: 17:19 Travel History International Travel<30 days: No Contact w/Intl Traveler<30days: No Traveled to known affect area: No History of Present Illness HPI 41-year-old female with an apparent developmental delay presents to emergency department with left knee and right upper extremity pain after falling 1 week ago. Patient states that she was walking on a sidewalk and there was an uneven portion of the sidewalk and she tripped and fell landing on her right wrist and left knee. She describes a FOOSH injury. Patient felt that she would improve over the last several days but has not which is why she presents today. Most of her pain is located in her right wrist and described as moderate that increases with movement of her wrist. Says her left knee is tender to the anterior aspect and has mild pain with walking. Pain decreases with rest. Denies radiation of pain. Denies numbness or tingling. Denies head trauma or LOC. Denies neck or back pain. Says that she has been working as usual but is unable to use her right hand because of the wrist pain. PFSH Past Medical History Arthritis: No Asthma: Yes Autoimmune Disease: No Blood Disorders: No Bipolar Disorder: Yes Anxiety: Yes Depression: Yes Heart Rhythm Problems: No Cancer: No Cardiovascular Problems: No High Cholesterol: No Chemotherapy: No Chest Pain: No Congestive Heart Failure: No COPD: No Cerebrovascular Accident: No Diabetes: Yes Diminished Hearing: No Endocrine: No Gastrointestinal Disorders: No Glaucoma: No Genitourinary: No Headaches: Yes Hepatitis: No Hypertension: No Immune Disorder: No Kidney Stones: No Musculoskeletal: No Neurologic: No Psychiatric: Yes Reproductive: No Respiratory: Yes (HX ASTHMA ) Immunizations Current: Yes Migraines: No Myocardial Infarction: No Radiation Therapy: No Renal Failure: No Schizophrenia: Yes Seizures: No Sickle Cell Disease: No Sleep Apnea: No Thyroid Disease: Yes ?: Not LMP: 03/21/17 : 2 Para: 2 Miscarriage: 0 : 0 Tubal Ligation: Yes Past Surgical History Abdominal Surgery: Yes () AICD: No Arteriovenous Shunt: No Cardiac Surgery: No Section: Yes Cholecystectomy: No Ear Surgery: No Endocrine Surgery: No Eye Surgery: No Genitourinary Surgery: No Gynecologic Surgery: Yes ( ) Insulin Pump: No Joint Replacement: No Neurologic Surgery: No Oral Surgery: No Pacemaker: No Thoracic Surgery: No Other Surgery: Yes (THYROID REMOVED) Social History Alcohol Use: No Tobacco Use: No Substance Use: No ( ) Allergies-Medications (Allergen,Severity, Reaction): Coded Allergies: No Known Allergies (Verified Adverse Reaction, Unknown, 03/23/17) Reported Meds & Prescriptions Reported Meds & Active Scripts Active Review of Systems Except as stated in HPI: all other systems reviewed are Neg Physical Exam Narrative GENERAL: Well-nourished, well-developed patient. SKIN: Focused skin assessment warm/dry. HEAD: Normocephalic. EYES: No scleral icterus. No injection or drainage. NECK: Supple, trachea midline. No JVD or lymphadenopathy. CARDIOVASCULAR: Regular rate and rhythm without murmurs, gallops, or rubs. RESPIRATORY: Breath sounds equal bilaterally. No accessory muscle use. MUSCULOSKELETAL: No cyanosis, or edema. Right hand no obvious ecchymosis or deformities. Neurovascularly intact although patient is reluctant to move finger secondary to the wrist pain. Right wrist limited range of motion secondary to pain. No ecchymosis. Mild edema of the distal wrist neurovascularly intact Right forearm TTP to distal half of forearm. No deformities or ecchymosis. No edema. Neurovascular intact Left knee light abrasion to the anterior aspect of patella. TTP to the lateral aspect of patella. No deformities. No significant edema. Full range of motion. Patient is ambulatory. BACK: Nontender without obvious deformity. No CVA tenderness. Data Data Last Documented VS Vital Signs Date Time Temp Pulse Resp B/P (MAP) Pulse Ox O2 Delivery O2 Flow Rate FiO2 03/23/17 15:02 98.6 87 18 135/82 (99) 100 Room Air Orders Orders Knee, Complete (4vws) (03/23/17 ) Forearm (2vws) (03/23/17 ) Hand, Complete ([id number]) (03/23/17 ) Splint Or Brace Apply/Monitor (03/23/17 17:19) Ed Discharge Order (03/23/17 17:21) Cockup Hand Splint (03/23/17 ) MDM Medical Decision Making Medical Screen Exam Complete: Yes Emergency Medical Condition: Yes Differential Diagnosis Left knee contusion, fracture, sprain Right hand contusion, fracture, abrasion Right wrist contusion, fracture, sprain Right forearm contusion, fracture, sprain Left foot abrasion, fracture, contusion Narrative Course 41-year-old female presents to emergency department with left knee and right upper extremity pain after falling 1 week ago. Patient states that she was walking on a sidewalk and there was an uneven portion of the sidewalk and she tripped and fell landing on her right wrist and left knee. She describes a FOOSH injury. Patient felt that she would improve over the last several days but has not which is why she presents today. Most of her pain is located in her right wrist and described as moderate that increases with movement of her wrist. Says her left knee is tender to the anterior aspect and has mild pain with walking. Pain decreases with rest. Denies radiation of pain. Denies numbness or tingling. Denies head trauma or LOC. Denies neck or back pain. Says that she has been working as usual but is unable to use her right hand because of the wrist pain. Vital signs stable. Physical exam demonstrates an neurovascularly intact upper and lower extremity. Last Impressions [facility] X-Ray 03/23/17 0000 Signed Impressions: Service Date/Time: Thursday, March 23, 2017 17:06 - CONCLUSION: No evidence of recent bony injury. Arik Santos MD Knee X-Ray 03/23/17 0000 Signed Impressions: Service Date/Time: Thursday, March 23, 2017 16:56 - CONCLUSION: No evidence of recent bony injury. Arik Santos MD Hand X-Ray 03/23/17 0000 Signed Impressions: Service Date/Time: Thursday, March 23, 2017 16:56 - CONCLUSION: No evidence of recent bony injury. Arik Santos MD X-rays demonstrated no obvious fracture. Patient advised of joint pain relief. Advised to use Tylenol or Motrin per package instructions. Wrist splinted for comfort. I advised that she should continue to move her joints to reduce complications such as atrophy. Advised follow-up with the primary care physician. Return to emergency room for worsening or persistent symptoms. Diagnosis Primary Impression: Contusion of left knee Qualified Codes: S80.02XA - Contusion of left knee, initial encounter Additional Impressions: Abrasion, left foot, initial encounter Hand sprain Qualified Codes: S63.91XA - Sprain of unspecified part of right wrist and hand , initial encounter Referrals: [facility] Primary Care Physician Additional Instructions: Use ice or heat for symptom relief. Elevate the joint above the heart to reduce swelling. You may use compression with Devon wrap or similar to reduce swelling. If symptoms persist or worsen, return to the emergency department. Follow up with your primary care physician within 2 days. Use splint as tolerated. Disposition: 01 DISCHARGE HOME Condition: Stable Angelica Robbins Mar 23, 2017 16:28
--- NOTE | 2017-03-23 17:17 | RADRPT ---
EXAM DATE/TIME: 03/23/2017 16:56 [facility] COMPARISON: No previous studies available for comparison. INDICATIONS : Right hand pain, fall. MEDICAL HISTORY : None. SURGICAL HISTORY : None. ENCOUNTER: Initial ACUITY: 4 - 6 days PAIN SCORE: 10/10 LOCATION: Right hand FINDINGS: Three view examination of the right hand demonstrates no soft tissue swelling, dislocation, or fractu re. The carpal bones appear intact. The interphalangeal and metacarpophalangeal joints are intact. Bony mineralization is normal. CONCLUSION: No evidence of recent bony injury. Arik Santos MD on March 23, 2017 at 17:15 Board Certified Radiologist. This report was verified electronically.
--- NOTE | 2017-03-23 17:18 | RADRPT ---
EXAM DATE/TIME: 03/23/2017 17:06 [facility] COMPARISON: No previous studies available for comparison. INDICATIONS : Right forearm pain, fall. MEDICAL HISTORY : None. SURGICAL HISTORY : None. ENCOUNTER: Initial ACUITY: 4 - 6 days PAIN SCORE: 8/10 LOCATION: Right distal forearm FINDINGS: Two view examination of the right forearm demonstrates no evidence of fracture or dislocation. Bony mineralization is normal. The soft tissue structures are intact. CONCLUSION: No evidence of recent bony injury. Arik Santos MD on March 23, 2017 at 17:16 Board Certified Radiologist. This report was verified electronically.
--- NOTE | 2017-03-23 17:20 | RADRPT ---
EXAM DATE/TIME: 03/23/2017 16:56 [facility] COMPARISON: KNEE LEFT COMPLETE (4VWS), February 09, 2015, 12:10. INDICATIONS : Left knee pain, fall. MEDICAL HISTORY : None. SURGICAL HISTORY : None. ENCOUNTER: Initial ACUITY: 4 - 6 days PAIN SCORE: 9/10 LOCATION: Left lateral knee FINDINGS: Four view examination of the left knee demonstrates no evidence of fracture or dislocation. Bony min eralization is normal. The articular surfaces are intact. The suprapatellar soft tissues have a nor mal configuration. CONCLUSION: No evidence of recent bony injury. Arik Santos MD on March 23, 2017 at 17:17 Board Certified Radiologist. This report was verified electronically.
== END 2017-03-23 17:44 | disposition home or self-care (01) ==
LOC: NEPK 15:00
DX: S80.02XA Contusion of left knee, initial encounter (principal); S63.91XA Sprain of unspecified part of right wrist and hand, initial encounter; S90.812A Abrasion, left foot, initial encounter; J45.909 Unspecified asthma, uncomplicated; F31.9 Bipolar disorder, unspecified; E11.9 Type 2 diabetes mellitus without complications; F20.9 Schizophrenia, unspecified; W01.0XXA Fall on same level from slipping, tripping and stumbling without subsequent striking against object, initial encounter; Y93.01 Activity, walking, marching and hiking
CPT/HCPCS: 73090; 73130; 73564; 99284; L3908

== ENCOUNTER 2017-05-19 16:32 | Emergency (ER) | payer MEDICAID, OTHER ==
[~2017-05-19] VITALS: Ht 160 cm; Wt 90.0 kg
[2017-05-19 16:35] VITALS: BP 118/74; PULSE 90; RESP 14; TEMP 97.8; O2SAT 100
[2017-05-19] MEDS ORDERED: IBUPROFEN 800 MG TAB PO ONE (18:30)
[2017-05-19] MEDS ORDERED: IBUP1TAB7 PO (18:40)
--- NOTE | 2017-05-19 18:42 | PD ---
HPI Chief Complaint: Injury Time Seen by Provider: 18:01 Travel History International Travel<30 days: No Contact w/Intl Traveler<30days: No Traveled to known affect area: No History of Present Illness HPI 41-year-old female presents to the emergency department with complaint of continued right wrist pain since March after she fell on it. She said she came here and x-rays were done and she was told it was fractured. She has been wearing a splint since and said she took it off yesterday. She said she has not followed up with a doctor because she does not have one and no one gave her one. She denies any recent injury. Denies paresthesias, loss of sensation to the affected extremity. Reports decreased range of motion of the right wrist secondary to pain. Reports pain 10/10. Describes as throbbing sensation. Has been trying to take Motrin, Tylenol, and use pain patches with no symptom relief. No primary care provider. No known allergies. Denies significant past medical history. Has no other medical complaints. No other modifying factors or associated signs and symptoms. PFSH Past Medical History Arthritis: No Asthma: Yes Autoimmune Disease: No Blood Disorders: No Bipolar Disorder: Yes Anxiety: Yes Depression: Yes Heart Rhythm Problems: No Cancer: No Cardiovascular Problems: No High Cholesterol: No Chemotherapy: No Chest Pain: No Congestive Heart Failure: No COPD: No Cerebrovascular Accident: No Diabetes: Yes Patient Takes Glucophage: No Diminished Hearing: No Endocrine: No Gastrointestinal Disorders: No Glaucoma: No Genitourinary: No Headaches: Yes Hepatitis: No Hypertension: No Immune Disorder: No Kidney Stones: No Musculoskeletal: No Neurologic: No Psychiatric: Yes Reproductive: No Respiratory: Yes (HX ASTHMA ) Immunizations Current: Yes Migraines: No Myocardial Infarction: No Radiation Therapy: No Renal Failure: No Schizophrenia: Yes Seizures: No Sickle Cell Disease: No Sleep Apnea: No Thyroid Disease: Yes ?: Not LMP: "MARCH" : 2 Para: 2 Miscarriage: 0 : 0 Tubal Ligation: Yes Past Surgical History Abdominal Surgery: Yes () AICD: No Arteriovenous Shunt: No Cardiac Surgery: No Section: Yes Cholecystectomy: No Ear Surgery: No Endocrine Surgery: No Eye Surgery: No Genitourinary Surgery: No Insulin Pump: No Joint Replacement: No Neurologic Surgery: No Oral Surgery: No Pacemaker: No Thoracic Surgery: No Other Surgery: Yes (THYROID REMOVED) Social History Alcohol Use: No Tobacco Use: No Substance Use: No ( ) Allergies-Medications (Allergen,Severity, Reaction): Coded Allergies: No Known Allergies (Verified Adverse Reaction, Unknown, 05/19/17) Reported Meds & Prescriptions Reported Meds & Active Scripts Active Ibuprofen 800 Mg Tab 800 Mg PO Q6HR PRN Review of Systems Except as stated in HPI: all other systems reviewed are Neg Physical Exam Narrative GENERAL: Well-nourished, well-developed black female patient, in no acute distress SKIN: Warm and dry. HEAD: Atraumatic. Normocephalic. EYES: Pupils equal and round. No scleral icterus. No injection or drainage. ENT: Mucosa pink and moist. Airway patent. NECK: Trachea midline. CARDIOVASCULAR: Regular rate. RESPIRATORY: No accessory muscle use. GASTROINTESTINAL: Rounded. MUSCULOSKELETAL: Right wrist with tenderness on palpation; no erythema ; no edema; decreased range of motion; no obvious deformity. Right hand with full range of motion at all joints. Right upper extremity is supple and non-tense with 2+ radial pulse and sensory intact. No obvious deformities. No clubbing. No cyanosis. NEUROLOGICAL: Awake and alert. Oriented 3. No obvious cranial nerve deficits. Motor grossly within normal limits. Normal speech. PSYCHIATRIC: Appropriate mood and affect; insight and judgment normal. Data Data Last Documented VS Vital Signs Date Time Temp Pulse Resp B/P (MAP) Pulse Ox O2 Delivery O2 Flow Rate FiO2 05/19/17 20:24 78 18 100 05/19/17 16:35 97.8 Room Air Orders Orders Wrist, Complete ([id number]) (05/19/17 18:16) Ibuprofen (Motrin) (05/19/17 18:30) Ed Discharge Order (05/19/17 19:54) Splint Or Brace Apply/Monitor (05/19/17 19:59) Cockup Hand Splint (05/19/17 ) MDM Medical Decision Making Medical Screen Exam Complete: Yes Emergency Medical Condition: Yes Medical Record Reviewed: Yes Differential Diagnosis Wrist sprain, wrist fracture, wrist pain Narrative Course 41-year-old female with right wrist pain. She says she fell and injured it back in March and came here to do x-rays. I reviewed the medical record and saw that on 03/23/2017 the patient was seen here and had a right hand and right radial/ulnar x-ray which were both unremarkable. I will x-ray the right wrist to rule out acute injury. Right wrist x-ray and ibuprofen ordered. Right wrist x-ray concluded: Wrist X-Ray 05/19/[id number] Signed Impressions: Service Date/Time: Friday, May 19, 2017 19:07 - CONCLUSION: No acute abnormality is identified. Jaun Vargas MD X-ray findings discussed with the patient. Instructed patient to stop using wrist brace and to follow-up outpatient with continued symptoms. Instructed patient to follow up with primary care provider. Patient verbalizes understanding and agreement with treatment plan. Patient is medically cleared and stable for discharge. Discussed reasons to return to the emergency department. Patient agrees with treatment plan. The patients vital signs are stable and the patient is stable for outpatient follow-up and treatment. Patient discharged home, stable and in no acute distress. Diagnosis Primary Impression: Right wrist pain Referrals: Hand Surgeon Primary Care Physician Patient Instructions: General Instructions, Wrist Injury (ED) Additional Instructions: Tylenol or ibuprofen as directed and as needed to reduce pain Rest, ice, compress, and elevate extremity to decrease pain and inflammation Avoid aggravating activity; increase activity as tolerated Follow-up with primary care provider Follow-up with hand surgeon Return to the emergency department immediately with worsening symptoms Med/Other Pt SpecificInfo: Prescription(s) given Scripts Ibuprofen (Ibuprofen) 800 Mg Tab 800 MG PO Q6HR Y for PAIN, #30 TAB 0 Refills Prov: Jessica Blanco 05/19/17 Disposition: 01 DISCHARGE HOME Condition: Stable Jessica Blanco May 19, 2017 18:42
--- NOTE | 2017-05-19 19:46 | RADRPT ---
EXAM DATE/TIME: 05/19/2017 19:07 [facility] COMPARISON: No previous studies available for comparison. INDICATIONS : Right Wrist Pain MEDICAL HISTORY : None. SURGICAL HISTORY : None. ENCOUNTER: Initial ACUITY: 1 day PAIN SCORE: 8/10 LOCATION: Right wrist FINDINGS: Three views of the right wrist demonstrate no fracture or dislocation. Mineralization is within mayra l limits. There is no significant arthropathy. No soft tissue abnormality or radiopaque foreign body is identified. CONCLUSION: No acute abnormality is identified. Jaun Vargas MD on May 19, 2017 at 19:43 Board Certified Radiologist. This report was verified electronically.
== END 2017-05-19 20:25 | disposition home or self-care (01) ==
LOC: NEPD 16:32
DX: M25.531 Pain in right wrist (principal)
CPT/HCPCS: 73110; 99283; L3908

== ENCOUNTER 2017-05-26 16:23 | Emergency (ER) | payer MEDICAID, OTHER ==
[~2017-05-26] VITALS: Ht 160 cm; Wt 100.0 kg
[~2017-05-26 16:23] MED LIST changes: -IBUP-1129 PO; +IBUP1TAB7 PO
[2017-05-26 16:34] VITALS: BP 122/68; PULSE 125; RESP 22; TEMP 100.8; O2SAT 98
[2017-05-26] MEDS ORDERED: ACETAMINOPHEN 325 MG TAB PO ONE (18:30)
--- NOTE | 2017-05-26 18:34 | PD ---
HPI Chief Complaint: Cold / Flu Symptoms Time Seen by Provider: 18:11 Travel History International Travel<30 days: No Contact w/Intl Traveler<30days: No Traveled to known affect area: No History of Present Illness HPI 41-year-old female presents to the emergency department complaining of shortness of breath, headache, weakness, body aches, body aches, subjective fever for approximately 2 days. 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 She denies chest congestion, back pain, chest pain, abdominal pain. Denies current medical issues. Denies medication use. PFSH Past Medical History Arthritis: No Asthma: Yes Autoimmune Disease: No Blood Disorders: No Bipolar Disorder: Yes Anxiety: Yes Depression: Yes Heart Rhythm Problems: No Cancer: No Cardiovascular Problems: No High Cholesterol: No Chemotherapy: No Chest Pain: No Congestive Heart Failure: No COPD: No Cerebrovascular Accident: No Diabetes: Yes Diminished Hearing: No Endocrine: No Gastrointestinal Disorders: No Glaucoma: No Genitourinary: No Headaches: Yes Hepatitis: No Hypertension: No Immune Disorder: No Kidney Stones: No Musculoskeletal: No Neurologic: No Psychiatric: Yes Reproductive: No Respiratory: Yes (HX ASTHMA ) Immunizations Current: Yes Migraines: No Myocardial Infarction: No Radiation Therapy: No Renal Failure: No Schizophrenia: Yes Seizures: No Sickle Cell Disease: No Sleep Apnea: No Thyroid Disease: Yes : 2 Para: 2 Miscarriage: 0 : 0 Tubal Ligation: Yes Past Surgical History Abdominal Surgery: Yes () AICD: No Arteriovenous Shunt: No Cardiac Surgery: No Section: Yes Cholecystectomy: No Ear Surgery: No Endocrine Surgery: No Eye Surgery: No Genitourinary Surgery: No Insulin Pump: No Joint Replacement: No Neurologic Surgery: No Oral Surgery: No Pacemaker: No Thoracic Surgery: No Other Surgery: Yes (THYROID REMOVED) Social History Alcohol Use: No Tobacco Use: No Substance Use: No ( ) Allergies-Medications (Allergen,Severity, Reaction): Coded Allergies: No Known Allergies (Verified Adverse Reaction, Unknown, 05/19/17) Reported Meds & Prescriptions Reported Meds & Active Scripts Active Tamiflu (Oseltamivir Phosphate) 75 Mg Cap 75 Mg PO BID 5 Days Ibuprofen 800 Mg Tab 800 Mg PO Q6HR PRN Review of Systems Except as stated in HPI: all other systems reviewed are Neg Physical Exam Narrative GENERAL: Well-nourished, well-developed patient in no acute respiratory distress SKIN: Focused skin assessment warm/dry. HEAD: Normocephalic. EYES: No scleral icterus. No injection or drainage. NECK: Supple, trachea midline. No JVD or lymphadenopathy. No meningismus CARDIOVASCULAR: Regular rate and rhythm without murmurs, gallops, or rubs. RESPIRATORY: Breath sounds equal bilaterally. No accessory muscle use. No wheezes, rales or rhonchi GASTROINTESTINAL: Abdomen soft, non-tender, nondistended. no CVA tenderness MUSCULOSKELETAL: No cyanosis, or edema. Homans sign negative bilaterally BACK: Nontender without obvious deformity. No CVA tenderness. Data Data Last Documented VS Vital Signs Date Time Temp Pulse Resp B/P (MAP) Pulse Ox O2 Delivery O2 Flow Rate FiO2 05/26/17 20:39 99.9 102 20 117/61 (79) 99 Room Air Orders Orders Chest, Pa & Lat (05/26/17 17:48) Influenzae A/B Antigen (05/26/17 18:25) Acetaminophen (Tylenol) (05/26/17 18:30) Sodium Chlor 0.9% 1000 Ml Inj (Ns 1000 M (05/26/17 18:45) Oseltamivir (Tamiflu) (05/26/17 20:30) Ed Discharge Order (05/26/17 20:25) MDM Medical Decision Making Medical Screen Exam Complete: Yes Emergency Medical Condition: Yes Differential Diagnosis Influenza, viral syndrome, upper respiratory infection Narrative Course 41-year-old female with a history of schizophrenia presents emergency department complaining of subjective fever, shortness of breath, body aches, and weakness since yesterday. Vital signs demonstrate a heart rate of 125, temperature 100.9. Tylenol administered, 1L IVF bolus. Upon reassessment, patient resting comfortably in bed. No shortness of breath demonstrated today. Labs and imaging studies ordered. Chest x-ray without acute process. Influenza A positive. Remaining labs canceled. Tamiflu 75 mg administered in the emergency department. Patient will be discharged with Tamiflu. Tylenol per package instructions for body aches and fevers Advised adequate fluid intake and proper nutrition. Patient should follow-up with her primary care physician. Avoid contact with others as she is contagious. Diagnosis Primary Impression: Influenza A Referrals: [facility] Departure Forms: Tests/Procedures, Work Release Enter return to work date: May 29, 2017 Additional Instructions: Take all medication as prescribed. Follow up with your primary care physician within 2-3 days. If your symptoms persist or worsen, return to the emergency department. Continue Tylenol per package instructions for your fever and body aches. Ensure adequate fluid intake and proper nutrition. Scripts Oseltamivir (Tamiflu) 75 Mg Cap 75 MG PO BID for Mgmt Viral Infection for 5 Days, #10 CAP 0 Refills Prov: Angelica Robbins 05/26/17 Disposition: 01 DISCHARGE HOME Condition: Stable Angelica Robbins May 26, 2017 18:34
[2017-05-26] MEDS ORDERED: SODIUM CHLOR 0.9% 1000 ML INJ 1,000 ML IV ONE (18:45)
--- NOTE | 2017-05-26 18:54 | RADRPT ---
EXAM DATE/TIME: 05/26/2017 18:29 [facility] COMPARISON: No previous studies available for comparison. INDICATIONS : Chest pain, cough, and shortness of breath for two days. MEDICAL HISTORY : Thyroid disease. Asthma. Diabetes. Depression. Schizophrenia. Bipolar disorder. SURGICAL HISTORY : section.Tubal ligation. Thyroidectomy. ENCOUNTER: Initial ACUITY: 2 days PAIN SCORE: 5/10 LOCATION: Bilateral chest FINDINGS: PA and lateral views of the chest demonstrate the lungs to be symmetrically aerated without evidence of mass, infiltrate or effusion. The cardiomediastinal contours are unremarkable. Osseous structure s are intact. CONCLUSION: No acute disease. Mckinley Arora MD on May 26, 2017 at 18:53 Board Certified Radiologist. This report was verified electronically.
[2017-05-26] MEDS ORDERED: OSEL75 PO (20:22)
[2017-05-26] MEDS ORDERED: OSELTAMIVIR PHOSPHATE 75 MG CAP PO ONE (20:30)
[2017-05-26 20:39] VITALS: BP 117/61; PULSE 102; RESP 20; TEMP 99.9; O2SAT 99
== END 2017-05-26 21:00 | disposition home or self-care (01) ==
LOC: NEPC 16:23
DX: J09.X2 Influenza due to identified novel influenza A virus with other respiratory manifestations (principal); F20.9 Schizophrenia, unspecified; R51 Headache; J45.909 Unspecified asthma, uncomplicated; F31.9 Bipolar disorder, unspecified; F41.9 Anxiety disorder, unspecified; E07.9 Disorder of thyroid, unspecified
CPT/HCPCS: 71046; 87804; 96360; 99284; J7030

== ENCOUNTER 2017-05-28 07:07 | Observation (INO) | payer MEDICAID, OTHER ==
[2017-05-28] VITALS (8 sets, daily range): BP systolic 103–122; BP diastolic 59–78; PULSE 76–96; RESP 14–18; TEMP 96.6–98.2; O2SAT 98–100
[~2017-05-28] VITALS: Ht 160 cm; Wt 96.0 kg
[~2017-05-28 07:07] MED LIST changes: +OSEL75 PO
--- NOTE | 2017-05-28 08:14 | PD ---
HPI Chief Complaint: Cold / Flu Symptoms Time Seen by Provider: 08:01 Travel History International Travel<30 days: No Contact w/Intl Traveler<30days: No Traveled to known affect area: No History of Present Illness HPI This is a 41-year-old female with a diagnosis of influenza, 2 days ago, presents today with complaints of generalized weakness and numbness and tingling to her extremities. Patient states that since her diagnosis, she has had numbness and tingling to her extremities. She states that she has had nausea vomiting. She reports she had diarrhea on Sunday. She reports the diarrhea has since resolved. She reports fevers with no chills. She states that she had to call her son to her house to help her get out of bed because she was so weak. The patient is able to hold down Gatorade. She states that when she tries to eat any solids, she throws up. She has been taking the Tamiflu as prescribed. She did not take her dose this morning. PFSH Past Medical History Arthritis: No Asthma: Yes Autoimmune Disease: No Blood Disorders: No Bipolar Disorder: Yes Anxiety: Yes Depression: Yes Heart Rhythm Problems: No Cancer: No Cardiovascular Problems: No High Cholesterol: No Chemotherapy: No Chest Pain: No Congestive Heart Failure: No COPD: No Cerebrovascular Accident: No Diabetes: Yes Diminished Hearing: No Endocrine: No Gastrointestinal Disorders: No Glaucoma: No Genitourinary: No Headaches: Yes Hepatitis: No Hypertension: No Immune Disorder: No Kidney Stones: No Musculoskeletal: No Neurologic: No Psychiatric: Yes Reproductive: No Respiratory: Yes (HX ASTHMA ) Immunizations Current: Yes Migraines: No Myocardial Infarction: No Radiation Therapy: No Renal Failure: No Schizophrenia: Yes Seizures: No Sickle Cell Disease: No Sleep Apnea: No Thyroid Disease: Yes Tetanus Vaccination: > 5 Years Influenza Vaccination: Yes ?: Not : 2 Para: 2 Miscarriage: 0 : 0 Tubal Ligation: Yes Past Surgical History Abdominal Surgery: Yes () AICD: No Arteriovenous Shunt: No Cardiac Surgery: No Section: Yes Cholecystectomy: No Ear Surgery: No Endocrine Surgery: No Eye Surgery: No Genitourinary Surgery: No Insulin Pump: No Joint Replacement: No Neurologic Surgery: No Oral Surgery: No Pacemaker: No Thoracic Surgery: No Other Surgery: Yes (THYROID REMOVED) Social History Alcohol Use: No Tobacco Use: No Substance Use: No ( ) Allergies-Medications (Allergen,Severity, Reaction): Coded Allergies: No Known Allergies (Verified Adverse Reaction, Unknown, 05/28/17) Reported Meds & Prescriptions Reported Meds & Active Scripts Active Tamiflu (Oseltamivir Phosphate) 75 Mg Cap 75 Mg PO BID 5 Days Ibuprofen 800 Mg Tab 800 Mg PO Q6HR PRN Review of Systems Except as stated in HPI: all other systems reviewed are Neg General / Constitutional: Positive: Fever HENT: Positive: Lightheadedness, No: Headaches, Neck Pain Cardiovascular: No: Chest Pain or Discomfort, Palpitations, Irregular Rhythm Respiratory: Positive: Cough, No: Shortness of Breath Gastrointestinal: Positive: Nausea, Vomiting, No: Diarrhea, Abdominal Pain ( Diarrhea on Sunday, none now) Genitourinary: No: Frequency, Dysuria Musculoskeletal: Positive: Weakness (Generalized), No: Pain Skin: No Rash, No Lesions Neurologic: Positive: Weakness (Generalized), Dizziness (Lightheaded), Sensory Disturbance (Numbness and tingling to her extremities.), No: Headache Physical Exam Narrative GENERAL: Well-developed well-nourished female in no acute respiratory distress. SKIN: Focused skin assessment warm/dry. HEAD: Atraumatic. Normocephalic. EYES: No scleral icterus. No injection or drainage. ENT: No nasal bleeding or discharge. Mucous membranes pink and moist. NECK: Trachea midline. Supple. CARDIOVASCULAR: Regular rate and rhythm. No murmur appreciated. RESPIRATORY: No accessory muscle use. Clear to auscultation. Breath sounds equal bilaterally. GASTROINTESTINAL: Abdomen soft, non-tender, nondistended. MUSCULOSKELETAL: No obvious deformities. No clubbing. No cyanosis. No edema. NEUROLOGICAL: Awake and alert. No obvious cranial nerve deficits. Motor grossly within normal limits. Normal speech. Data Data Last Documented VS Vital Signs Date Time Temp Pulse Resp B/P (MAP) Pulse Ox O2 Delivery O2 Flow Rate FiO2 05/28/17 12:00 97.9 86 17 109/78 (88) 99 Room Air Orders Orders Complete Blood Count With Diff (05/28/17 08:01) Comprehensive Metabolic Panel (05/28/17 08:01) Chest, Single Ap (05/28/17 08:01) Iv Access Insert/Monitor (05/28/17 08:01) Ecg Monitoring (05/28/17 08:01) Oximetry (05/28/17 08:01) Sodium Chlor 0.9% 1000 Ml Inj (Ns 1000 M (05/28/17 08:15) Ibuprofen (Motrin) (05/28/17 08:15) Sodium Chlor 0.9% 1000 Ml Inj (Ns 1000 M (05/28/17 09:15) Thyroid Stimulating Hormone (05/28/17 11:53) Magnesium (Mg) (05/28/17 11:53) Creatine Kinase (Cpk) (05/28/17 11:53) Place In Observation (05/28/17 ) Vital Signs (Adult) Q4H (05/28/17 11:53) Activity Oob With Assistance (05/28/17 11:53) Intake + Output JANNIE.QSHIFT (05/28/17 11:53) Diet Regular Basic (05/28/17 Lunch) Sodium Chlor 0.9% 1000 Ml Inj (Ns 1000 M (05/28/17 12:00) Sodium Chloride 0.9% Flush (Ns Flush) (05/28/17 12:00) Sodium Chloride 0.9% Flush (Ns Flush) (05/28/17 21:00) Acetaminophen (Tylenol) (05/28/17 12:00) Ondansetron Inj (Zofran Inj) (05/28/17 12:00) Basic Metabolic Panel (Bmp) (05/29/17 06:00) Complete Blood Count With Diff (05/29/17 06:00) Resp Oxygen Cryil C Titrat 1-4 L (05/28/17 ) Pt Request For Service (05/28/17 11:53) Case Management Consult (05/28/17 11:53) Scd Bilateral/Knee High JANNIE.BID (05/28/17 11:53) Acetaminophen (Tylenol) (05/28/17 12:00) Naloxone Inj (Narcan Inj) (05/28/17 12:00) Magnesium Hydroxide Liq (Milk Of Magnesi (05/28/17 12:00) Sennosides (Senokot) (05/28/17 12:00) Bisacodyl Supp (Dulcolax Supp) (05/28/17 12:00) Lactulose Liq (Lactulose Liq) (05/28/17 12:00) ^ Fall Precautions (05/28/17 11:53) Ibuprofen (Motrin) (05/28/17 12:00) Famotidine (Pepcid) (05/28/17 21:00) Oseltamivir (Tamiflu) (05/28/17 12:30) Admit Order (Ed Use Only) (05/28/17 12:14) CKMB (05/28/17 08:17) CKMB% (05/28/17 08:17) Labs Laboratory Tests Test 05/28/17 08:17 White Blood Count 2.7 TH/MM3 Red Blood Count 4.91 MIL/MM3 Hemoglobin 13.3 GM/DL Hematocrit 40.4 % Mean Corpuscular Volume 82.2 FL Mean Corpuscular Hemoglobin 27.1 PG Mean Corpuscular Hemoglobin Concent 32.9 % Red Cell Distribution Width 14.7 % Platelet Count 266 TH/MM3 Mean Platelet Volume 8.4 FL Neutrophils (%) (Auto) 45.2 % Lymphocytes (%) (Auto) 35.9 % Monocytes (%) (Auto) 12.6 % Eosinophils (%) (Auto) 5.5 % Basophils (%) (Auto) 0.8 % Neutrophils # (Auto) 1.2 TH/MM3 Lymphocytes # (Auto) 1.0 TH/MM3 Monocytes # (Auto) 0.3 TH/MM3 Eosinophils # (Auto) 0.1 TH/MM3 Basophils # (Auto) 0.0 TH/MM3 CBC Comment DIFF FINAL Differential Comment Blood Urea Nitrogen 7 MG/DL Creatinine 0.84 MG/DL Random Glucose 91 MG/DL Total Protein 7.3 GM/DL Albumin 3.2 GM/DL Calcium Level 8.2 MG/DL Alkaline Phosphatase 84 U/L Aspartate Amino Transf (AST/SGOT) 17 U/L Alanine Aminotransferase (ALT/SGPT) 19 U/L Total Bilirubin 0.3 MG/DL Sodium Level 143 MEQ/L Potassium Level 3.9 MEQ/L Chloride Level 108 MEQ/L Carbon Dioxide Level 28.5 MEQ/L Anion Gap 7 MEQ/L Estimat Glomerular Filtration Rate 90 ML/MIN Hemoglobin A1c 5.7 % Magnesium Level 2.2 MG/DL Total Creatine Kinase 337 U/L Creatine Kinase MB 1.7 NG/ML Creatine Kinase MB % 0.5 % Thyroid Stimulating Hormone 3rd Gen 1.810 uIU/ML MDM Medical Decision Making Medical Screen Exam Complete: Yes Emergency Medical Condition: Yes Differential Diagnosis Exacerbation of influenza A versus metabolic derangement versus near syncope Narrative Course 41-year-old female with a recent diagnosis of influenza 2 days ago, presents today with complaints of generalized body aches and weakness. Patient states that she can barely get out of bed. She states she had to call her son at home to help her get out of bed to use the bathroom. The patient's been given 800 mg of Motrin and 1 L of IV fluid. On reevaluation patient is still extremely weak and unsteady in gait. Given this, she will be admitted for hydration and continued influenza treatment. Case was discussed with [facility]ist. Patient was placed under observation. Diagnosis Primary Impression: Generalized weakness with difficulty ambulating Additional Impressions: Influenza Dehydration Leg cramping Admitting Information Admitting Physician Requests: Observation German Turk MD May 28, 2017 08:14
[2017-05-28] MEDS ORDERED: SODIUM CHLOR 0.9% 1000 ML INJ 1,000 ML IV ONE ×2 (08:15→09:15)
[2017-05-28] MEDS ORDERED: IBUPROFEN 800 MG TAB PO ONE (08:15)
[2017-05-28 08:46] LABS: AUTOMATED NEUTROPHIL # 1.2 TH/MM3 (1.8-7.7); BASOPHIL % 0.8 % (0.0-2.0); EOSINOPHIL # 0.1 TH/MM3 (0-0.4); EOSINOPHIL % 5.5 % (0.0-4.0); HEMATOCRIT 40.4 % (35.0-46.0); HEMOGLOBIN 13.3 GM/DL (11.6-15.3); LYMPH % 35.9 % (9.0-44.0); MEAN CELL VOLUME 82.2 FL (80.0-100.0); MEAN CORPUSCULAR HEMOGLOBIN 27.1 PG (27.0-34.0); MEAN CORPUSCULAR HGB CONC 32.9 % (32.0-36.0); MEAN PLATELET VOLUME 8.4 FL (7.0-11.0); MONO % 12.6 % (0.0-8.0); MONOCYTE # 0.3 TH/MM3 (0-0.9); NEUT % 45.2 % (16.0-70.0); PLATELET COUNT 266 TH/MM3 (150-450); RED BLOOD COUNT 4.91 MIL/MM3 (4.00-5.30); RED CELL DISTRIBUTION WIDTH 14.7 % (11.6-17.2); WHITE BLOOD COUNT 2.7 TH/MM3 (4.0-11.0)
[2017-05-28 09:04] LABS: ALBUMIN 3.2 GM/DL (3.4-5.0); AST (GOT) 17 U/L (15-37); BICARBONATE 28.5 MEQ/L (21.0-32.0); BLOOD UREA NITROGEN 7 MG/DL (7-18); CALCIUM 8.2 MG/DL (8.5-10.1); CHLORIDE 108 MEQ/L (98-107); CREATININE 0.84 MG/DL (0.50-1.00); GLOMERULAR FILTRATION RATE 90 ML/MIN (>89); GLUCOSE,RANDOM 91 MG/DL (74-106); SODIUM (NA) 143 MEQ/L (136-145)
[2017-05-28 09:05] LABS: ALT (GPT) 19 U/L (10-53)
[2017-05-28 09:07] LABS: ALKALINE PHOSPHATASE 84 U/L (45-117); TOTAL BILIRUBIN ADULT 0.3 MG/DL (0.2-1.0); TOTAL PROTEIN 7.3 GM/DL (6.4-8.2)
--- NOTE | 2017-05-28 09:18 | RADRPT ---
EXAM DATE/TIME: 05/28/2017 08:27 [facility] COMPARISON: No previous studies available for comparison. INDICATIONS : Patient is positive for the "flu". MEDICAL HISTORY : Thyroid disease. Asthma. Diabetes. Depression. Schizophrenia. Bipolar SURGICAL HISTORY : section. Tubal ligation. ENCOUNTER: Initial ACUITY: 3 days PAIN SCORE: 10/10 LOCATION: all over FINDINGS: The lungs are clear. The heart is minimally enlarged. The pulmonary vascularity is normal. There is n o evidence for infiltrate or failure. The portion of the bony skeleton visualized is unremarkable. CONCLUSION: Compensated cardiomegaly otherwise negative Gigi Martin MD FACR on May 28, 2017 at 9:15 Board Certified Radiologist. This report was verified electronically.
[2017-05-28] MEDS ORDERED: MAGNESIUM HYDROXIDE SUSP 30 ML CUP PO PRN (12:00)
[2017-05-28] MEDS ORDERED: SODIUM CHLORIDE 0.9% FLUSH 10 ML FLUSH IV FLUSH PRN (12:00)
[2017-05-28] MEDS ORDERED: SENNOSIDES 8.6 MG TAB PO PRN (12:00)
[2017-05-28] MEDS ORDERED: BISACODYL 10 MG SUPP RECTAL PRN (12:00)
[2017-05-28] MEDS ORDERED: NALOXONE HCL 0.4 MG/ML AMP IV PUSH PRN (12:00)
[2017-05-28] MEDS ORDERED: LACTULOSE SYRUP 20 GM/30 ML CUP PO PRN (12:00)
[2017-05-28] MEDS ORDERED: ONDANSETRON HCL 4 MG/2 ML VIAL IVP PRN (12:00)
[2017-05-28] MEDS ORDERED: ACETAMINOPHEN 325 MG TAB PO PRN (12:00)
[2017-05-28] MEDS: SODIUM CHLOR 0.9% 1000 ML INJ 1,000 ML IV SCH ×2 (12:05→20:55)
[2017-05-28] MEDS: ACETAMINOPHEN 325 MG TAB PO PRN (12:07)
[2017-05-28] MEDS: OSELTAMIVIR PHOSPHATE 75 MG CAP PO SCH ×2 (12:30→20:55)
[2017-05-28 14:41] LABS: MAGNESIUM 2.2 MG/DL (1.5-2.5)
--- NOTE | 2017-05-28 15:07 | HHI.HP ---
HPI Service [facility] Primary Care Physician No Primary Care Physician Admission Diagnosis weakness, inability to ambulate, influenza A, leukopenia Diagnoses: Chief Complaint: Generalized weakness Travel History International Travel<30 Days: No Contact w/Intl Traveler <30 Da: No Traveled to Known Affected Are: No History of Present Illness Written by Graciela Riddle, acting as scribe for Dr. Walker on 05/28/17 at 15:07. Patient is a 41-year-old female with primary medical history of anxiety, depression, bipolar disorder and asthma who came to the hospital secondary to complaints of generalized weakness. Patient states that 2 days ago she was diagnosed with influenza and was given Tamiflu and was sent home. She states that she had some diarrhea last Sunday, nausea and vomiting yesterday. Reports fall 2 times yesterday. States she woke up today she does not feel really well and continues to have some generalized weakness. Otherwise she denies fever, chills, exposure to sick person or animals. Denies chest pain, palpitations, dizziness. Reports headaches. Denies dysuria. Complaints of mild abdominal pain midepigastric region, 6, nonradiating. Does not know what relieves or activates the pain. Review of Systems Except as stated in HPI: all other systems reviewed are Neg Past Family Social History Past Medical History Anxiety Depression Bipolar disorder Asthma Past Surgical History Thyroid surgery Reported Medications Reported Meds & Active Scripts Active Tamiflu (Oseltamivir Phosphate) 75 Mg Cap 75 Mg PO BID 5 Days Ibuprofen 800 Mg Tab 800 Mg PO Q6HR PRN Allergies: Coded Allergies: No Known Allergies (Verified Adverse Reaction, Unknown, 05/28/17) Active Ordered Medications Current Medications Medications (Trade) Dose Ordered Sig/Kunal Route Start Time Stop Time Status Last Admin Sodium Chloride 1,000 ml @ 100 mls/hr Q10H IV 05/28/17 12:00 05/28/17 12:05 (NS Flush) 2 ml UNSCH PRN IV FLUSH 05/28/17 12:00 (NS Flush) 2 ml BID IV FLUSH 05/28/17 21:00 (Tylenol) 650 mg Q4H PRN PO 05/28/17 12:00 (Zofran Inj) 4 mg Q6H PRN IVP 05/28/17 12:00 (Tylenol) 650 mg Q6H PRN PO 05/28/17 12:00 05/28/17 12:07 (Narcan Inj) 0.4 mg UNSCH PRN IV PUSH 05/28/17 12:00 (Milk Of Magnesia Liq) 30 ml Q12H PRN PO 05/28/17 12:00 (Senokot) 17.2 mg Q12H PRN PO 05/28/17 12:00 (Dulcolax Supp) 10 mg DAILY PRN RECTAL 05/28/17 12:00 (Lactulose Liq) 30 ml DAILY PRN PO 05/28/17 12:00 (Motrin) 800 mg Q8H PRN PO 05/28/17 12:00 (Pepcid) 20 mg BID PO 05/28/17 21:00 (Tamiflu) 75 mg BID PO 05/28/17 12:30 05/28/17 12:30 Family History Denies any significant family medical history. Denies family medical history of HTN, stroke. Social History Denies alcohol use Denies tobacco use Denies illicit drug use. Physical Exam Vital Signs Vital Signs Date Time Temp Pulse Resp B/P (MAP) Pulse Ox O2 Delivery O2 Flow Rate FiO2 05/28/17 13:33 20 05/28/17 12:41 97.8 86 16 110/76 (87) 99 05/28/17 12:00 97.9 86 17 109/78 (88) 99 Room Air 05/28/17 10:15 97.7 87 17 103/67 (79) 99 Room Air 05/28/17 09:18 16 05/28/17 08:17 16 98 Room Air 05/28/17 07:20 81 18 98 Room Air 05/28/17 07:13 98.2 96 18 117/70 (86) 100 Physical Exam GENERAL: This is an obese, well-developed patient, in no apparent distress. SKIN: Cool and dry. HEAD: Normocephalic. EYES: Pupils equal round and reactive. Extraocular motions intact. No scleral icterus. No injection or drainage. ENT: Nose without bleeding. Throat without erythema. Uvula midline. Airway patent. NECK: Trachea midline. CARDIOVASCULAR: Regular rate and rhythm without murmurs, gallops, or rubs. RESPIRATORY: Clear to auscultation. Breath sounds equal bilaterally. No wheezes , rales, or rhonchi. GASTROINTESTINAL: Abdomen soft, nondistended. Mild tenderness to palpation midepigastric region. Pulses active 4. MUSCULOSKELETAL: Extremities without clubbing, cyanosis, or edema. NEUROLOGICAL: Awake and alert. Cranial nerves II through XII intact. Motor and sensory grossly within normal limits.Normal speech. Laboratory Laboratory Tests Test 05/28/17 08:17 White Blood Count 2.7 Red Blood Count 4.91 Hemoglobin 13.3 Hematocrit 40.4 Mean Corpuscular Volume 82.2 Mean Corpuscular Hemoglobin 27.1 Mean Corpuscular Hemoglobin Concent 32.9 Red Cell Distribution Width 14.7 Platelet Count 266 Mean Platelet Volume 8.4 Neutrophils (%) (Auto) 45.2 Lymphocytes (%) (Auto) 35.9 Monocytes (%) (Auto) 12.6 Eosinophils (%) (Auto) 5.5 Basophils (%) (Auto) 0.8 Neutrophils # (Auto) 1.2 Lymphocytes # (Auto) 1.0 Monocytes # (Auto) 0.3 Eosinophils # (Auto) 0.1 Basophils # (Auto) 0.0 CBC Comment DIFF FINAL Differential Comment Blood Urea Nitrogen 7 Creatinine 0.84 Random Glucose 91 Total Protein 7.3 Albumin 3.2 Calcium Level 8.2 Alkaline Phosphatase 84 Aspartate Amino Transf (AST/SGOT) 17 Alanine Aminotransferase (ALT/SGPT) 19 Total Bilirubin 0.3 Sodium Level 143 Potassium Level 3.9 Chloride Level 108 Carbon Dioxide Level 28.5 Anion Gap 7 Estimat Glomerular Filtration Rate 90 Magnesium Level 2.2 Total Creatine Kinase 337 Creatine Kinase MB 1.7 Creatine Kinase MB % 0.5 Thyroid Stimulating Hormone 3rd Gen 1.810 Result Diagram: 05/28/1717 05/28/17816 Imaging Last Impressions Chest X-Ray 05/28/17 08 Signed Impressions: Service Date/Time: Sunday, May 28, 2017 08:27 - CONCLUSION: Compensated cardiomegaly otherwise negative Gigi Martin MD FACR Caprini VTE Risk Assessment Caprini VTE Risk Assessment: No/Low Risk (score <= 1) Caprini Risk Assessment Model Point Value = 1 Point Value = 2 Point Value = 3 Point Value = 5 Age 41-60 Minor surgery BMI > 25 kg/m2 Swollen legs Varicose veins or History of unexplained or recurrent spontaneous Oral contraceptives or hormone replacement Sepsis (< 1 month) Serious lung disease, including pneumonia (< 1 month) Abnormal pulmonary function Acute myocardial infarction Congestive heart failure (< 1 month) History of inflammatory bowel disease Medical patient at bed rest Age 61-74 Arthroscopic surgery Major open surgery (> 45 min) Laparoscopic surgery (> 45 min) Malignancy Confined to bed (> 72 hours) Immobilizing plaster cast Central venous access Age >= 75 History of VTE Family history of VTE Factor V Leiden Prothrombin [id number] Lupus anticoagulant Anticardiolipin antibodies Elevated serum homocysteine Heparin-induced thrombocytopenia Other congenital or acquired thrombophilia Stroke (< 1 month) Elective arthroplasty Hip, pelvis, or leg fracture Acute spinal cord injury (< 1 month) Prophylaxis Regimen Total Risk Factor Score Risk Level Prophylaxis Regimen 0-1 Low Early ambulation 2 Moderate Order ONE of the following: *Sequential Compression Device (SCD) *Heparin 5000 units SQ BID 3-4 Higher Order ONE of the following medications: *Heparin 5000 units SQ TID *Enoxaparin/Lovenox 40 mg SQ daily (WT < 150 kg, CrCl > 30 mL/min) *Enoxaparin/Lovenox 30 mg SQ daily (WT < 150 kg, CrCl > 10-29 mL/min) *Enoxaparin/Lovenox 30 mg SQ BID (WT < 150 kg, CrCl > 30 mL/min) AND/OR *Sequential Compression Device (SCD) 5 or more Highest Order ONE of the following medications: *Heparin 5000 units SQ TID (Preferred with Epidurals) *Enoxaparin/Lovenox 40 mg SQ daily (WT < 150 kg, CrCl > 30 mL/min) *Enoxaparin/Lovenox 30 mg SQ daily (WT < 150 kg, CrCl > 10-29 mL/min) *Enoxaparin/Lovenox 30 mg SQ BID (WT < 150 kg, CrCl > 30 mL/min) AND *Sequential Compression Device (SCD) Assessment and Plan Problem List: (1) Influenza ICD Code: J11.1 - Influenza due to unidentified influenza virus with other respiratory manifestations (2) History of asthma ICD Code: Z87.09 - Personal history of other diseases of the respiratory system Status: Acute (3) Leg cramping ICD Code: R25.2 - Cramp and spasm Status: Acute (4) Dehydration ICD Code: E86.0 - Dehydration Status: Acute Assessment and Plan Patient is a 41-year-old female with primary medical history of anxiety, depression, bipolar disorder and asthma who came to the hospital secondary to complaints of generalized weakness. Influenza A -Diagnosed with influenza A 05/26/17 -Continue with Tamiflu -Supportive care, Tylenol for fevers. Mild rhabdomyolysis Generalized weakness -Likely secondary to influenza -Physical therapy eval and treat -IV fluids for hydration -Follow-up labs DVT Prop early ambulation, SCDs This note was transcribed by crissy Riddle. I, Dr. George Walker personally performed the history, physical exam, and medical decision making; and confirmed the accuracy of the information in the transcribed note. Authenticated by Dr. George Walker on 05/28/17 at 15:07. Code Status Full code Discussed Condition With patient, nursing Graciela Jackson May 28, 2017 15:07 George Walker MD May 28, 2017 15:10
[2017-05-28] MEDS: SODIUM CHLORIDE 0.9% FLUSH 10 ML FLUSH IV FLUSH SCH (20:55)
[2017-05-28] MEDS: FAMOTIDINE 20 MG TAB PO SCH (20:55)
[2017-05-28] MEDS: IBUPROFEN 800 MG TAB PO PRN (20:56)
[2017-05-28 22:19] LABS: HEMOGLOBIN A1C 5.7 % (4.3-6.0)
[2017-05-29] MEDS ORDERED: diphenhydrAMINE HCL 50 MG CAP PO ONE ×2 (01:00→22:00)
[2017-05-29 04:51] VITALS: BP 126/82; PULSE 84; RESP 16; TEMP 98.4; O2SAT 96
[2017-05-29] MEDS: SODIUM CHLOR 0.9% 1000 ML INJ 1,000 ML IV SCH ×2 (06:03→16:50)
[2017-05-29 06:56] LABS: AUTOMATED NEUTROPHIL # 1.8 TH/MM3 (1.8-7.7); BASOPHIL % 0.6 % (0.0-2.0); EOSINOPHIL # 0.2 TH/MM3 (0-0.4); EOSINOPHIL % 4.2 % (0.0-4.0); HEMATOCRIT 37.2 % (35.0-46.0); HEMOGLOBIN 12.5 GM/DL (11.6-15.3); LYMPHOCYTE # 1.5 TH/MM3 (1.0-4.8); MEAN CORPUSCULAR HEMOGLOBIN 27.5 PG (27.0-34.0); MEAN CORPUSCULAR HGB CONC 33.5 % (32.0-36.0); MEAN PLATELET VOLUME 8.7 FL (7.0-11.0); MONO % 6.2 % (0.0-8.0); MONOCYTE # 0.2 TH/MM3 (0-0.9); PLATELET COUNT 277 TH/MM3 (150-450); RED BLOOD COUNT 4.53 MIL/MM3 (4.00-5.30); RED CELL DISTRIBUTION WIDTH 14.5 % (11.6-17.2); WHITE BLOOD COUNT 3.7 TH/MM3 (4.0-11.0)
[2017-05-29 07:21] LABS: BICARBONATE 24.9 MEQ/L (21.0-32.0); CREATININE 0.7 MG/DL (0.50-1.00)
[2017-05-29 08:00] VITALS: BP 109/74; PULSE 74; RESP 18; TEMP 98.3; O2SAT 99
[2017-05-29] MEDS: OSELTAMIVIR PHOSPHATE 75 MG CAP PO SCH ×2 (08:32→20:49)
[2017-05-29] MEDS: SODIUM CHLORIDE 0.9% FLUSH 10 ML FLUSH IV FLUSH SCH ×2 (08:32→20:48)
[2017-05-29] MEDS: ACETAMINOPHEN 325 MG TAB PO PRN (08:32)
[2017-05-29] MEDS: FAMOTIDINE 20 MG TAB PO SCH ×2 (08:32→20:49)
[2017-05-29 12:00] VITALS: BP 120/84; PULSE 77; RESP 18; TEMP 97.6; O2SAT 100
[2017-05-29] MEDS: IBUPROFEN 800 MG TAB PO PRN (12:54)
--- NOTE | 2017-05-29 14:01 | HHI.PR ---
Subjective Remarks Follow-up influenza and deconditioning. Still complains she cannot feel anterior legs which is improving from yesterday when she complained of entire lower extremity numbness. Denies neck and lower back pain. Discussed with nursing. Objective Vitals Vital Signs Date Time Temp Pulse Resp B/P (MAP) Pulse Ox O2 Delivery O2 Flow Rate FiO2 05/29/17 13:59 20 05/29/17 12:00 97.6 77 18 120/84 (96) 100 05/29/17 10:21 22 05/29/17 08:00 98.3 74 18 109/74 (86) 99 05/29/17 04:51 98.4 84 16 126/82 (97) 96 05/28/17 20:22 97.7 84 14 122/63 (82) 99 05/28/17 16:00 98.2 76 18 107/59 (75) 100 I/O 05/28/17 05/28/17 05/28/17 05/29/17 05/29/17 05/29/17 07:00 15:00 23:00 07:00 15:00 23:00 Intake Total 1000 ml 500 ml Balance 1000 ml 500 ml Intake Oral 500 ml IV Total 1000 ml # Voids 1 3 Result Diagram: 05/29/17 0535 05/29/17 0535 Imaging Last Impressions Chest X-Ray 05/28/17 0801 Signed Impressions: Service Date/Time: Sunday, May 28, 2017 08:27 - CONCLUSION: Compensated cardiomegaly otherwise negative Gigi Martin MD FACR Objective Remarks GENERAL: This is an obese, well-developed patient, in no apparent distress. SKIN: Cool and dry. HEAD: Normocephalic. CARDIOVASCULAR: Regular rate and rhythm without murmurs, gallops, or rubs. RESPIRATORY: Clear to auscultation. Breath sounds equal bilaterally. No wheezes , rales, or rhonchi. GASTROINTESTINAL: Abdomen soft, nondistended. Mild tenderness to palpation midepigastric region. Pulses active 4. MUSCULOSKELETAL: Extremities without clubbing, cyanosis, or edema. NEUROLOGICAL: Awake and alert. Cranial nerves II through XII intact. Motor within normal limits. Slightly decreased sensation anterior legs normal speech. Procedures none A/P Problem List: (1) Influenza ICD Code: J11.1 - Influenza due to unidentified influenza virus with other respiratory manifestations (2) History of asthma ICD Code: Z87.09 - Personal history of other diseases of the respiratory system Status: Acute (3) Leg cramping ICD Code: R25.2 - Cramp and spasm Status: Acute (4) Dehydration ICD Code: E86.0 - Dehydration Status: Acute Assessment and Plan Patient is a 41-year-old female with primary medical history of anxiety, depression, bipolar disorder and asthma who came to the hospital secondary to complaints of generalized weakness. Influenza A. This is stable continue with Tamiflu. Improved Mild rhabdomyolysis. Stable continue IV hydration Generalized weakness. This is likely secondary to influenza. Status post PT eval no need for home care Improving paresthesia of the bilateral lower extremities. She denies neck or back pain. Obtain B12, folate, RPR and TSH. May need neurology consult or EMG if persistent. DVT Prop early ambulation, SCDs Discharge Planning Possible discharge today or tomorrow George Walker MD May 29, 2017 14:01
[2017-05-29 16:00] VITALS: BP 113/71; PULSE 68; RESP 18; TEMP 96.4; O2SAT 100
[2017-05-30 01:32] VITALS: BP 121/77; PULSE 76; RESP 14; TEMP 98.8; O2SAT 98
[2017-05-30] MEDS: SODIUM CHLOR 0.9% 1000 ML INJ 1,000 ML IV SCH (02:13)
[2017-05-30 04:52] VITALS: BP 117/69; PULSE 72; RESP 14; TEMP 98.3; O2SAT 98
[2017-05-30 05:15] VITALS: O2SAT 98
[2017-05-30 08:10] VITALS: BP 113/62; PULSE 72; RESP 18; TEMP 97.8; O2SAT 100
[2017-05-30] MEDS: OSELTAMIVIR PHOSPHATE 75 MG CAP PO SCH (09:52)
[2017-05-30] MEDS: FAMOTIDINE 20 MG TAB PO SCH (09:52)
[2017-05-30] MEDS: SODIUM CHLORIDE 0.9% FLUSH 10 ML FLUSH IV FLUSH SCH (09:52)
[2017-05-30] MEDS ORDERED: FAMO20TA2 PO (11:39)
[2017-05-30] MEDS ORDERED: OSEL75 PO (11:39)
--- NOTE | 2017-05-30 11:39 | HHI.DCPOC ---
Discharge Care Plan Diagnosis: (1) Influenza (2) Leg cramping (3) Dehydration Goals to Promote Your Health * To prevent worsening of your condition and complications * To maintain your health at the optimal level Directions to Meet Your Goals Take your medications as prescribed Follow your dietary instruction Follow activity as directed Keep your appointments as scheduled Take your immunizations and boosters as scheduled If your symptoms worsen call your PCP, if no PCP go to Urgent Care Center or Emergency Room Smoking is Dangerous to Your Health. Avoid second hand smoke Call the 24-hour hour crisis hotline for domestic abuse at Evelina Jain PA-C May 30, 2017 11:39 am
--- NOTE | 2017-05-30 11:48 | HHI.DS ---
Discharge Summary Admission Date May 28, 2017 at 12:16 Discharge Date: May 30, 2017 Admitting Diagnosis weakness, inability to ambulate, influenza A, leukopenia (1) Influenza ICD Code: J11.1 - Influenza due to unidentified influenza virus with other respiratory manifestations Diagnosis: Principal (2) History of asthma ICD Code: Z87.09 - Personal history of other diseases of the respiratory system Diagnosis: Principal Status: Acute (3) Leg cramping ICD Code: R25.2 - Cramp and spasm Diagnosis: Principal Status: Acute (4) Dehydration ICD Code: E86.0 - Dehydration Diagnosis: Principal Status: Acute Procedures none Brief History - From Admission Written by Graciela Riddle, acting as scribe for Dr. Walker on 05/28/17 at 15:07. Patient is a 41-year-old female with primary medical history of anxiety, depression, bipolar disorder and asthma who came to the hospital secondary to complaints of generalized weakness. Patient states that 2 days ago she was diagnosed with influenza and was given Tamiflu and was sent home. She states that she had some diarrhea last Sunday, nausea and vomiting yesterday. Reports fall 2 times yesterday. States she woke up today she does not feel really well and continues to have some generalized weakness. Otherwise she denies fever, chills, exposure to sick person or animals. Denies chest pain, palpitations, dizziness. Reports headaches. Denies dysuria. Complaints of mild abdominal pain midepigastric region, 09/02, nonradiating. Does not know what relieves or activates the pain. CBC/BMP: 05/29/17 0535 05/29/17 0535 Significant Findings Laboratory Tests Test 05/28/17 08:17 05/29/17 05:35 05/29/17 12:55 05/29/17 13:00 White Blood Count 2.7 TH/MM3 (4.0-11.0) 3.7 TH/MM3 (4.0-11.0) Monocytes (%) (Auto) 12.6 % (0.0-8.0) Eosinophils (%) (Auto) 5.5 % (0.0-4.0) 4.2 % (0.0-4.0) Neutrophils # (Auto) 1.2 TH/MM3 (1.8-7.7) Albumin 3.2 GM/DL (3.4-5.0) Calcium Level 8.2 MG/DL (8.5-10.1) 8.0 MG/DL (8.5-10.1) Chloride Level 108 MEQ/L (98-107) 112 MEQ/L (98-107) Total Creatine Kinase 337 U/L (26-192) C-Reactive Protein 1.40 MG/DL (0.00-0.30) Test 05/29/17 20:20 05/30/17 10:40 Erythrocyte Sedimentation Rate 24 mm/hr (0-20) Imaging Last Impressions Chest X-Ray 05/28/17 0801 Signed Impressions: Service Date/Time: Sunday, May 28, 2017 08:27 - CONCLUSION: Compensated cardiomegaly otherwise negative Gigi Martin MD FACR PE at Discharge GENERAL: This is an obese, well-developed patient, in no apparent distress. SKIN: Cool and dry. HEAD: Normocephalic. CARDIOVASCULAR: Regular rate and rhythm without murmurs, gallops, or rubs. RESPIRATORY: Clear to auscultation. Breath sounds equal bilaterally. No wheezes , rales, or rhonchi. GASTROINTESTINAL: Abdomen soft, nondistended. Mild tenderness to palpation midepigastric region. Pulses active 4. MUSCULOSKELETAL: Extremities without clubbing, cyanosis, or edema. NEUROLOGICAL: Awake and alert. Cranial nerves II through XII intact. Motor within normal limits. Normal sensation anterior legs normal speech. Hospital Course Patient is a 41-year-old female with primary medical history of anxiety, depression, bipolar disorder and asthma who came to the hospital secondary to complaints of generalized weakness. Influenza A. This is stable continue with Tamiflu. Mild rhabdomyolysis. Stable s/p IV hydration Generalized weakness. This is likely secondary to influenza. Status post PT eval no need for home care Resolved paresthesia of the bilateral lower extremities. She denies neck or back pain. Unremarkable B12, folate, RPR and TSH. Pending TSH Left inguinal strain, mild. Symptomatic treatment DVT Prop early ambulation, SCDs Pt Condition on Discharge: Stable Discharge Disposition: Discharge Home Discharge Time: > 30 minutes Discharge Instructions DIET: Follow Instructions for: As Tolerated, No Restrictions Activities you can perform: Regular-No Restrictions Follow up Referrals: PCP Follow-up - 2-3 Days with [facility] New Medications: Famotidine (Famotidine) 20 Mg Tab 20 MG PO BID for Heartburn Management for 7 Days, #14 TAB Continued Medications: Ibuprofen (Ibuprofen) 800 Mg Tab 800 MG PO Q6HR PRN for PAIN, #30 TAB 0 Refills Oseltamivir (Tamiflu) 75 Mg Cap 75 MG PO BID for Mgmt Viral Infection, #15 CAP 0 Refills (This prescription has been renewed) George Walker MD May 30, 2017 11:48
[2017-05-30 12:15] VITALS: BP 111/77; PULSE 67; RESP 18; TEMP 97.5; O2SAT 100
== END 2017-05-30 17:21 | disposition home or self-care (01) ==
LOC: NEPE 07:07 → NEDA 12:16 → NEPHCDU 13:29
PROVIDERS: ADMIT Internal Medicine; ATTEND Internal Medicine
DX: J10.1 Influenza due to other identified influenza virus with other respiratory manifestations (principal); E86.0 Dehydration; R10.13 Epigastric pain; R11.2 Nausea with vomiting, unspecified; E11.9 Type 2 diabetes mellitus without complications; E07.9 Disorder of thyroid, unspecified; J45.909 Unspecified asthma, uncomplicated; M62.82 Rhabdomyolysis; F20.9 Schizophrenia, unspecified; F31.9 Bipolar disorder, unspecified; F41.9 Anxiety disorder, unspecified
CPT/HCPCS: 71045; 80048; 80053; 80307; 82550; 82552; 82607; 82746; 83036; 83735; 84425; 84443; 85025; 85652; 86140; 86592; 96360; 96361; 97110; 97116; 97162; 99285; G0378; J7030; Q0163

== ENCOUNTER 2017-06-02 10:15 | Emergency (ER) | payer MEDICAID, OTHER ==
[~2017-06-02] VITALS: Ht 160 cm; Wt 105.0 kg
[~2017-06-02 10:15] MED LIST changes: +FAMO20TA2 PO
[2017-06-02 10:22] VITALS: BP 112/68; PULSE 90; RESP 16; TEMP 97.7; O2SAT 98
--- NOTE | 2017-06-02 11:01 | PD ---
HPI Chief Complaint: Musculoskeletal Complaint Time Seen by Provider: 10:26 Travel History International Travel<30 days: No Contact w/Intl Traveler<30days: No Traveled to known affect area: No History of Present Illness HPI 41-year-old female that presents to the ED for evaluation of right forearm pain. Per patient she's had pain and swelling since last week. Per patient she was seen at the hospital last week and was admitted to the hospital secondary to multiple falls. Per patient she had a fracture to her right wrist some months ago and she's been having pain ever since but for the most part she was doing okay until she had an IV placed in that same area. Per patient ever since she's been having a lot of pain. Per patient she told the staff that she had one IV in that area but this still that it. She denies any other medical issues. She was admitted she had influence and had weakness and multiple falls. She denies any new falls to it. She does have soft tissue swelling and pain in the dorsal aspect of the wrist. She also has a significant history of psychiatric illness. Per patient her pain is 8 out of 10 and she's been taking [id number] remedies with minimal relief. She has no allergies to medication. Other medical issues. Pain per patient radiates from the wrist to the elbow. PFSH Past Medical History Arthritis: No Asthma: Yes Autoimmune Disease: No Blood Disorders: No Bipolar Disorder: Yes Anxiety: Yes Depression: Yes Heart Rhythm Problems: No Cancer: No Cardiovascular Problems: No High Cholesterol: No Chemotherapy: No Chest Pain: No Congestive Heart Failure: No COPD: No Cerebrovascular Accident: No Diabetes: Yes Patient Takes Glucophage: No Diminished Hearing: No Endocrine: No Gastrointestinal Disorders: No Glaucoma: No Genitourinary: No Headaches: Yes Hepatitis: No Hypertension: No Immune Disorder: No Kidney Stones: No Musculoskeletal: No Neurologic: No Psychiatric: Yes Reproductive: No Respiratory: Yes (HX ASTHMA ) Immunizations Current: Yes Migraines: No Myocardial Infarction: No Radiation Therapy: No Renal Failure: No Schizophrenia: Yes Seizures: No Sickle Cell Disease: No Sleep Apnea: No Thyroid Disease: Yes ?: Not LMP: 5 DAYS : 2 Para: 2 Miscarriage: 0 : 0 Tubal Ligation: Yes Past Surgical History Abdominal Surgery: Yes () AICD: No Arteriovenous Shunt: No Cardiac Surgery: No Section: Yes Cholecystectomy: No Ear Surgery: No Endocrine Surgery: No Eye Surgery: No Genitourinary Surgery: No Insulin Pump: No Joint Replacement: No Neurologic Surgery: No Oral Surgery: No Pacemaker: No Thoracic Surgery: No Other Surgery: Yes (THYROID REMOVED) Social History Alcohol Use: No Tobacco Use: No Substance Use: No ( ) Allergies-Medications (Allergen,Severity, Reaction): Coded Allergies: No Known Allergies (Verified Adverse Reaction, Unknown, 06/02/17) Reported Meds & Prescriptions Reported Meds & Active Scripts Active Famotidine 20 Mg Tab 20 Mg PO BID 7 Days Tamiflu (Oseltamivir Phosphate) 75 Mg Cap 75 Mg PO BID Ibuprofen 800 Mg Tab 800 Mg PO Q6HR PRN Review of Systems Except as stated in HPI: all other systems reviewed are Neg Physical Exam Narrative GENERAL: SKIN: Warm and dry. HEAD: Atraumatic. Normocephalic. EYES: Pupils equal and round. No scleral icterus. No injection or drainage. ENT: No nasal bleeding or discharge. Mucous membranes pink and moist. NECK: Trachea midline. No JVD. CARDIOVASCULAR: Regular rate and rhythm. RESPIRATORY: No accessory muscle use. Clear to auscultation. Breath sounds equal bilaterally. GASTROINTESTINAL: Abdomen soft, non-tender, nondistended. Hepatic and splenic margins not palpable. MUSCULOSKELETAL: Extremities without clubbing, cyanosis, or edema. No obvious deformities. Full range of motion of the upper and lower extremities bilaterally. Patient is very tender to touch on the right wrist. Patient does have soft tissue swelling compared to the left. Tender to touch mostly in the dorsal aspect. Good capillary refill. Sensation intact bilaterally. 2+ pulses bilaterally. No obvious bony deformity noted. NEUROLOGICAL: Awake and alert. No obvious cranial nerve deficits. Motor grossly within normal limits. Five out of 5 muscle strength in the arms and legs. Normal speech. PSYCHIATRIC: Appropriate mood and affect; insight and judgment normal. Data Data Last Documented VS Vital Signs Date Time Temp Pulse Resp B/P (MAP) Pulse Ox O2 Delivery O2 Flow Rate FiO2 06/02/17 10:22 97.7 90 16 112/68 (83) 98 Orders Orders Forearm (2vws) (06/02/17 ) Us Arm Venous Doppler (06/02/17 ) MDM Medical Decision Making Medical Screen Exam Complete: Yes Emergency Medical Condition: Yes Medical Record Reviewed: Yes Interpretation(s) US negative Xray of forearm negative Differential Diagnosis DVT versus fracture versus strain versus postprocedure pain versus chronic pain Narrative Course 41-year-old female that presents to the ED for evaluation of right forearm pain and swelling. Patient was properly examined and was found to have signs and symptoms consistent with muscle scale pain. Likely secondary to the IV placed. She does have some swelling in the area. Recommend FOLLOWING SIGN OF BLOOD CLOT THE LEFT LIKELY. X-RAY WAS DONE AND DID NOT SHOW ANY SIGN OF BONY INJURY. Ultrasound and x-ray were negative. Patient was reassured. This time I recommend ice or warm compresses. Given brace. Given a prescription for clonazepam for pain. Follow-up with PCP. See ED worsening symptoms. Diagnosis Primary Impression: Wrist pain, acute Qualified Codes: M25.531 - Pain in right wrist Patient Instructions: General Instructions Additional Instructions: Take medications as prescribed. Follow-up with PCP. See ED for any worsening symptoms. Apply ice or heat as needed for pain Med/Other Pt SpecificInfo: Prescription(s) given Disposition: 01 DISCHARGE HOME Condition: Stable Darrell Holm Jun 02, 2017 11:01
[2017-06-02] MEDS ORDERED: DICL75TA PO (11:07)
--- NOTE | 2017-06-02 11:34 | RADRPT ---
EXAM DATE/TIME: 06/02/2017 10:40 [facility] COMPARISON: FOREARM RIGHT (2VWS), March 23, 2017, 17:06. INDICATIONS : Pain all over right forearm after having a IV in righ arm 6 days ago MEDICAL HISTORY : None. SURGICAL HISTORY : None. ENCOUNTER: Initial ACUITY: 4 - 6 days PAIN SCORE: 10/10 LOCATION: Right forearm FINDINGS: Two view examination of the right forearm demonstrates no evidence of fracture or dislocation. Bony mineralization is normal. The soft tissue structures are intact. CONCLUSION: No evidence of significant soft tissue swelling or radiopaque foreign body. Shiva Hood MD on June 02, 2017 at 11:31 Board Certified Radiologist. This report was verified electronically.
--- NOTE | 2017-06-02 12:28 | RADRPT ---
EXAM DATE/TIME: 06/02/2017 11:13 [facility] COMPARISON: FOREARM RIGHT (2VWS), June 02, 2017, 10:40. INDICATIONS : Right arm pain for 3 days. MEDICAL HISTORY : Asthma. Diabetes. SURGICAL HISTORY : section. Tubal ligation. Thyroid removed. ENCOUNTER: Initial ACUITY: 3 days PAIN SCORE: 5/10 LOCATION: Right arm. FINDINGS: There is spontaneous flow documented in the brachial, basilic, cephalic, axillary, and subclavian vei ns. The vessels are compressible and augmentation response is documented. No filling defects are se en. The flow is phasic with respiration. Direction of flow in the jugular vein is caudal. CONCLUSION: No evidence of right upper extremity DVT. Isaac Parham MD on June 02, 2017 at 12:22 Board Certified Radiologist. This report was verified electronically.
[2017-06-02] MEDS ORDERED: ACETAMINOPHEN/HYDROcodone 325 MG/5 MG TAB PO ONE (12:30)
== END 2017-06-02 12:45 | disposition home or self-care (01) ==
LOC: PHEFT 10:15
DX: M25.531 Pain in right wrist (principal); M79.631 Pain in right forearm; R22.31 Localized swelling, mass and lump, right upper limb; E11.9 Type 2 diabetes mellitus without complications; E07.9 Disorder of thyroid, unspecified; Z87.09 Personal history of other diseases of the respiratory system; Z86.59 Personal history of other mental and behavioral disorders
CPT/HCPCS: 73090; 93971; 99284; L3908

== ENCOUNTER 2017-06-04 13:18 | Emergency (ER) | payer MEDICAID, OTHER ==
[~2017-06-04] VITALS: Ht 160 cm; Wt 102.0 kg
[~2017-06-04 13:18] MED LIST changes: +DICL75TA PO
[2017-06-04 13:19] VITALS: BP 144/75; PULSE 104; RESP 18; TEMP 98.6; O2SAT 99
[2017-06-04] MEDS ORDERED: TYLETAB34 PO (14:08)
--- NOTE | 2017-06-04 14:14 | PD ---
HPI Chief Complaint: Chest Pain Time Seen by Provider: 13:37 Travel History International Travel<30 days: No Contact w/Intl Traveler<30days: No Traveled to known affect area: No History of Present Illness HPI The patient was seen and examined in the presence of the nurse. She complains of chest pain. Duration 2 days. Severity is moderate. No injury. She is not short of breath. No alleviating factors. She has asthma which is not wheezing. exacerbating factor is movement of her chest wall produces her pain PFSH Past Medical History Arthritis: No Asthma: Yes Autoimmune Disease: No Blood Disorders: No Bipolar Disorder: Yes Anxiety: Yes Depression: Yes Heart Rhythm Problems: No Cancer: No Cardiovascular Problems: No High Cholesterol: No Chemotherapy: No Chest Pain: No Congestive Heart Failure: No COPD: No Cerebrovascular Accident: No Diabetes: Yes Patient Takes Glucophage: No Diminished Hearing: No Endocrine: No Gastrointestinal Disorders: No Glaucoma: No Genitourinary: No Headaches: Yes Hepatitis: No Hypertension: No Immune Disorder: No Kidney Stones: No Musculoskeletal: No Neurologic: No Psychiatric: Yes Reproductive: No Respiratory: Yes (HX ASTHMA ) Immunizations Current: Yes Migraines: No Myocardial Infarction: No Radiation Therapy: No Renal Failure: No Schizophrenia: Yes Seizures: No Sickle Cell Disease: No Sleep Apnea: No Thyroid Disease: Yes Tetanus Vaccination: < 5 Years Influenza Vaccination: No ?: Not : 2 Para: 2 Miscarriage: 0 : 0 Tubal Ligation: Yes Past Surgical History Abdominal Surgery: Yes () AICD: No Arteriovenous Shunt: No Cardiac Surgery: No Section: Yes Cholecystectomy: No Ear Surgery: No Endocrine Surgery: No Eye Surgery: No Genitourinary Surgery: No Insulin Pump: No Joint Replacement: No Neurologic Surgery: No Oral Surgery: No Pacemaker: No Thoracic Surgery: No Other Surgery: Yes (THYROID REMOVED) Social History Alcohol Use: No Tobacco Use: No Substance Use: No ( ) Allergies-Medications (Allergen,Severity, Reaction): Coded Allergies: No Known Allergies (Verified Adverse Reaction, Unknown, 06/04/17) Reported Meds & Prescriptions Reported Meds & Active Scripts Active Tylenol-Codeine #3 (Acetaminophen-Codeine) 300-30 mg Tab 1 Tab PO Q6H PRN Diclofenac Sodium DR (Diclofenac Sodium) 75 Mg Tabdr 75 Mg PO BID PRN Famotidine 20 Mg Tab 20 Mg PO BID 7 Days Tamiflu (Oseltamivir Phosphate) 75 Mg Cap 75 Mg PO BID Ibuprofen 800 Mg Tab 800 Mg PO Q6HR PRN Review of Systems General / Constitutional: No: Fever Eyes: No: Visual changes HENT: No: Headaches Cardiovascular: Positive: Chest Pain or Discomfort Respiratory: No: Shortness of Breath Gastrointestinal: No: Abdominal Pain Genitourinary: No: Dysuria Musculoskeletal: No: Pain Skin: No Rash Neurologic: No: Weakness Psychiatric: No: Depression Endocrine: No: Polydipsia Hematologic/Lymphatic: No: Easy Bruising Physical Exam Narrative GENERAL: Well-nourished, well-developed patient in no apparent distress. SKIN: Focused skin assessment reveals no rash and nodules. Skin is Warm and dry. HEAD: Atraumatic. Normocephalic. EYES: Pupils equal and round. No scleral icterus. No injection or drainage. ENT: No nasal bleeding or discharge. Mucous membranes pink and moist. NECK: Trachea midline. No JVD. CARDIOVASCULAR: Regular rate and rhythm. No murmur appreciated. RESPIRATORY: No accessory muscle use. Clear to auscultation. Breath sounds equal bilaterally. GASTROINTESTINAL: Abdomen soft, non-tender, nondistended. Hepatic and splenic margins not palpable. MUSCULOSKELETAL: No obvious deformities. No clubbing. No cyanosis. No edema. Readily reproducible chest wall tenderness in the sternum. Movement of her torso reproduces his pain is well NEUROLOGICAL: Awake and alert. No obvious cranial nerve deficits. Motor grossly within normal limits. Normal speech. PSYCHIATRIC: Appropriate mood and affect; insight and judgment normal. Data Data Last Documented VS Vital Signs Date Time Temp Pulse Resp B/P (MAP) Pulse Ox O2 Delivery O2 Flow Rate FiO2 06/04/17 13:40 18 98 Room Air 06/04/17 13:19 98.6 104 144/75 (98) [facility] Medical Decision Making Medical Screen Exam Complete: Yes Emergency Medical Condition: Yes Medical Record Reviewed: Yes Differential Diagnosis Differential diagnosis includes [place], angina, pericarditis, pleurisy, GERD, anxiety. Narrative Course I have reviewed the patient's electronic medical record. Patient is a frequent visitor to the ER. She was just admitted for flu and weakness a few days ago I reviewed her EKG which is normal Discussed clear-cut and readily reproducible chest wall pain and will not require inpatient admission or stress testing Wrote her a few Tylenol 3 to use if needed Diagnosis Primary Impression: Musculoskeletal chest pain Additional Instructions: The patient was warned about potential sedation for the medications they will receive on prescription. The patient was advised to follow up with their physician and return if they worsen. Med/Other Pt SpecificInfo: Prescription(s) given Scripts Acetaminophen-Codeine (Tylenol-Codeine #3) 300-30 mg Tab 1 TAB PO Q6H Y for PAIN, #15 TAB 0 Refills Prov: Franky Merino MD 06/04/17 Disposition: 01 DISCHARGE HOME Condition: Stable Franky Merino MD Jun 04, 2017 14:14
[2017-06-04 14:31] VITALS: BP 118/70
--- NOTE | 2017-06-05 20:24 | EKG ---
Date Performed: 06/04/2017 Time Performed: 13:30:46 PTAGE: 41 years EKG: Sinus rhythm NORMAL ECG Since the PREVIOUS TRACING , no significant change noted DOCTOR: Chelly Roque Interpretating Date/Time 06/05/2017 20:22:34
== END 2017-06-04 14:44 | disposition home or self-care (01) ==
LOC: PHED 13:18
DX: R07.89 Other chest pain (principal); J45.909 Unspecified asthma, uncomplicated; F31.9 Bipolar disorder, unspecified; F20.9 Schizophrenia, unspecified; E89.0 Postprocedural hypothyroidism
CPT/HCPCS: 93005; 99283

== ENCOUNTER 2017-07-06 15:09 | Emergency (ER) | payer MEDICAID, OTHER ==
[~2017-07-06] VITALS: Ht 160 cm; Wt 105.0 kg
[~2017-07-06 15:09] MED LIST changes: +TYLETAB34 PO
[2017-07-06 15:14] VITALS: BP 119/76; PULSE 94; RESP 18; TEMP 97.9; O2SAT 99
[2017-07-06] MEDS ORDERED: MOBI15TA PO (15:36)
--- NOTE | 2017-07-06 15:36 | PD ---
HPI Chief Complaint: Musculoskeletal Complaint Time Seen by Provider: 15:29 Travel History International Travel<30 days: No Contact w/Intl Traveler<30days: No Traveled to known affect area: No History of Present Illness HPI 42-year-old female complains of left elbow pain. Patient states that she started having sharp pain localized to the lateral aspect the left elbow for the past 2 and half weeks. Patient denies any trauma to the area. Patient denies any fall. Patient states the pain is sharp pain. Patient denies any pain radiation. Patient states that the pain is worse with movement of the left shoulder joint. On a scale from 1-10 the pain is an 8. Patient denies any fever chills. 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 Patient does heavy lifting every day. PFSH Past Medical History Arthritis: No Asthma: Yes Autoimmune Disease: No Blood Disorders: No Bipolar Disorder: Yes Anxiety: Yes Depression: Yes Heart Rhythm Problems: No Cancer: No Cardiovascular Problems: No High Cholesterol: No Chemotherapy: No Chest Pain: No Congestive Heart Failure: No COPD: No Cerebrovascular Accident: No Diabetes: Yes Patient Takes Glucophage: No Diminished Hearing: No Endocrine: No Gastrointestinal Disorders: No Glaucoma: No Genitourinary: No Headaches: Yes Hepatitis: No Hypertension: No Immune Disorder: No Kidney Stones: No Musculoskeletal: No Neurologic: No Psychiatric: Yes Reproductive: No Respiratory: Yes (HX ASTHMA ) Immunizations Current: Yes Migraines: No Myocardial Infarction: No Radiation Therapy: No Renal Failure: No Schizophrenia: Yes Seizures: No Sickle Cell Disease: No Sleep Apnea: No Thyroid Disease: Yes Influenza Vaccination: Yes ?: Not LMP: MAY : 2 Para: 2 Miscarriage: 0 : 0 Tubal Ligation: Yes Past Surgical History Abdominal Surgery: Yes () AICD: No Arteriovenous Shunt: No Cardiac Surgery: No Section: Yes Cholecystectomy: No Ear Surgery: No Endocrine Surgery: No Eye Surgery: No Genitourinary Surgery: No Insulin Pump: No Joint Replacement: No Neurologic Surgery: No Oral Surgery: No Pacemaker: No Thoracic Surgery: No Other Surgery: Yes (THYROID REMOVED) Social History Alcohol Use: No Tobacco Use: No Substance Use: No ( ) Allergies-Medications (Allergen,Severity, Reaction): Coded Allergies: No Known Allergies (Verified Adverse Reaction, Unknown, 07/06/17) Reported Meds & Prescriptions Reported Meds & Active Scripts Active Mobic (Meloxicam) 15 Mg Tab 15 Mg PO DAILY Review of Systems General / Constitutional: No: Fever Eyes: No: Visual changes HENT: No: Headaches Cardiovascular: No: Chest Pain or Discomfort Respiratory: No: Shortness of Breath Gastrointestinal: No: Abdominal Pain Genitourinary: No: Dysuria Musculoskeletal: Positive: Pain Skin: No Rash Neurologic: No: Weakness Psychiatric: No: Depression Endocrine: No: Polydipsia Hematologic/Lymphatic: No: Easy Bruising Physical Exam Narrative GENERAL: Well-nourished, well-developed patient. SKIN: Focused skin assessment warm/dry. HEAD: Normocephalic. EYES: No scleral icterus. No injection or drainage. NECK: Supple, trachea midline. No JVD or lymphadenopathy. CARDIOVASCULAR: Regular rate and rhythm without murmurs, gallops, or rubs. RESPIRATORY: Breath sounds equal bilaterally. No accessory muscle use. GASTROINTESTINAL: Abdomen soft, non-tender, nondistended. MUSCULOSKELETAL: No cyanosis, or edema. BACK: Nontender without obvious deformity. No CVA tenderness. Patient has moderate tenderness on palpation lateral epicondyle area at the left elbow. Full range of motion of the left elbow joint. No redness no heat noted. No deformity noted. Data Data Last Documented VS Vital Signs Date Time Temp Pulse Resp B/P (MAP) Pulse Ox O2 Delivery O2 Flow Rate FiO2 07/06/17 15:14 97.9 94 18 119/76 (90) 99 Orders Orders Elbow, Complete (4 Vws) (07/06/17 15:32) [facility] Medical Decision Making Medical Screen Exam Complete: Yes Emergency Medical Condition: Yes Interpretation(s) Last Impressions Elbow X-Ray 07/06/17 0692 Signed Impressions: Service Date/Time: Thursday, July 06, 2017 15:34 - CONCLUSION: No fracture or effusion. Jose E Ley MD Differential Diagnosis Differential diagnosis including tendinitis, bursitis, fracture, dislocation. Narrative Course 42-year-old female with pain lateral epicondyle area of the left elbow. Diagnosis Primary Impression: Lateral epicondylitis (tennis elbow) Qualified Codes: M77.12 - Lateral epicondylitis, left elbow Patient Instructions: General Instructions Additional Instructions: Eigu-bei-ntllnrd tennis elbow band as directed. Mobic as needed for pain. Ice pack as needed. Follow-up with orthopedist if persistent problem. Med/Other Pt SpecificInfo: Prescription(s) given Scripts Meloxicam (Mobic) 15 Mg Tab 15 MG PO DAILY for Pain, #30 TAB 0 Refills Prov: Roger Chatman MD 07/06/17 Disposition: 01 DISCHARGE HOME Condition: Stable Roger Chatman MD Jul 06, 2017 15:36
--- NOTE | 2017-07-06 15:48 | RADRPT ---
EXAM DATE/TIME: 07/06/2017 15:34 [facility] COMPARISON: No previous studies available for comparison. INDICATIONS : Left elbow pain. No known injury. MEDICAL HISTORY : Asthma. Diabetes SURGICAL HISTORY : section. Tubal ligation. Thyroid removed ENCOUNTER: Initial ACUITY: 2 weeks PAIN SCORE: 9/10 LOCATION: Left upper extremity FINDINGS: Multiple view examination of the left elbow demonstrates no soft tissue swelling, joint effusion, or fracture. The osseous structures are in normal alignment. Bony mineralization is normal. CONCLUSION: No fracture or effusion. Jose E Ley MD on July 06, 2017 at 15:46 Board Certified Radiologist. This report was verified electronically.
== END 2017-07-06 16:10 | disposition home or self-care (01) ==
LOC: PHEFT 15:09
DX: M77.12 Lateral epicondylitis, left elbow (principal); E11.9 Type 2 diabetes mellitus without complications; J45.909 Unspecified asthma, uncomplicated; F31.9 Bipolar disorder, unspecified; F20.9 Schizophrenia, unspecified
CPT/HCPCS: 73080; 99283

== ENCOUNTER 2018-01-15 18:57 | Observation (INO) ==
[2018-01-15] MEDS ORDERED: Sodium Chlor 0.9% Inj 500 ML IV.SIG ONE (22:00)
--- NOTE | 2018-01-15 22:25 | ED ---
HPI General Chief complaint: Chest Pain Stated complaint: Patient states chest pain Time Seen by Provider: 01/15/18 21:48 Source: patient Limitations: no limitations History of Present Illness HPI narrative: The patient is a 42 year old female who presents to the [facility] emergency department with a history of developing chest pain at 10:30 AM this morning. She reports that she was working when it began. She reports that the pain is 9 out of 10 in severity and located in the center of her chest. She reports that the pain is sharp in character. She reports that it has been constant since the onset. She reports it is worse with taking a deep breath or talking. She denies any injury to her chest wall. She denies having any prior history of DVT or PE. She denies being on any hormone replacement or oral contraceptives. She denies having any prior history of coronary artery disease. She does report having a history of hypertension, however she denies any history of diabetes or hyperlipidemia. She denies ever having chest pain like this previously. She denies any recent acid reflux or heartburn symptoms. She reports that she does have shortness of breath with the chest pain. She denies having any radiation of the pain. She reports having nausea and vomiting x1 today. She denies having any diaphoresis. She denies having any fevers or chills, cough or congestion. On review of systems otherwise, the patient denies having any abdominal pain, diarrhea, urinary symptoms, or neurologic symptoms. Related Data Previous Rx's Medication Instructions Recorded hydrochlorothiazide 12.5 mg PO DAILY #30 cap 01/04/18 levothyroxine 50 mcg PO DAILY #30 cap 01/04/18 Allergies Allergy/AdvReac Type Severity Reaction Status Date / Time aspirin Allergy Hives Verified 01/15/18 19:32 Review of Systems ROS: all other systems reviewed are negative [facility] Medical History Medical History Hypertension (Acute) Patient denies medical problems (Acute) Surgical history unknown (Acute) Surgical History Surgical History H/O thyroidectomy (Acute) History of tubal ligation (Acute) Social History Social History Substance History: No History of Abuse Second Hand Smoke Exposure: No Smoking Status: Never smoker Tobacco Type: Cigarettes How Often Do You Have a Drink Containing Alcohol: Never Recent Travel in [place] within the Last 8 Weeks: No Recent Out of Country Travel within the Last 8 Weeks: No Immunization History Tetanus Immunization: Unsure Tetanus Immunization Year if Known: 2018 Exam Const General: cooperative and no acute distress Nutritional Appearance: well nourished Orientation: alert, awake and oriented x3 HENMT Head: normocephalic and atraumatic Nose: no nasal discharge and no epistaxis Mouth: moist mucous membranes Eyes Sclera: normal sclerae Pupils: PERRL Neck Neck: no meningeal signs, trachea midline, no JVD and other (cystic area right anterior neck just below the jaw that is reportedly been there since August. ) Chest Chest: tenderness (Palpation of the center of her chest. No step-off or crepitus. No erythema or ecchymosis.) Resp Effort & Inspection: no use of accessory muscles Auscultation: clear to auscultation bilaterally Cardio Rate: regular rate Rhythm: regular rhythm Heart Sounds: no murmurs GI Inspection: non-distended Palpation: soft, no hepatosplenomegaly and nontender Back/Spine/Pelvis Back: no CVA tenderness Skin General: dry skin (warm) Neuro General: alert, awake, oriented x3 and other (Grossly nonfocal.) Speech: speech normal Motor: no movement abnormalities noted Extrem General: normal to inspection (2+ pulses in all 4 extremities.), no calf tenderness, no clubbing, no cyanosis and no edema Psych Mood: congruent mood Affect: normal affect Judgment: judgment good Course Initial Documented Vital Signs Temperature 99.4 F 01/15/18 19:32 Pulse Rate 71 01/15/18 19:32 Respiratory Rate 18 01/15/18 19:32 Blood Pressure 117/73 01/15/18 19:32 Pulse Oximetry 100 01/15/18 19:32 Last Documented Vital Signs Temperature 99.4 F 01/15/18 19:32 Pulse Rate 90 01/15/18 23:00 Respiratory Rate 20 01/15/18 23:00 Blood Pressure 116/77 01/15/18 23:00 Pulse Oximetry 100 01/15/18 23:00 Medical Decision Making MDM Narrative Medical decision making narrative: During the course of the patient's emergency department visit, the patient's history, examination, and differential diagnosis were reviewed with the patient. The patient was placed on a director of cardiac rehabilitation with oximetry and frequent blood pressure monitoring. The patient had IV access obtained and blood work sent for analysis. A diagnostic evaluation was started regarding the patient's chest pain. The patient was initially provided nitroglycerin sublingual x1. The patient reports an allergic reaction to aspirin where she develops hives. The patient's diagnostic studies are remarkable for a normal white count of 7, hemoglobin 13.4, platelets within normal limits at 314 with a normal differential, PT PTT within normal limits, d-dimer is found to be within normal limits at 0.20 decreasing the likelihood of pulmonary embolism in this patient with no other significant risk factors. Chemistry is remarkable for a GFR of 83 , CPK 480 with a normal MB percent, troponin I is less than 0.02, lipase within normal limits. The patient's chest x-ray showed no acute cardiopulmonary disease. The patient will be admitted to the chest pain center for rule out serial cardiac enzyme protocol. The patient's results were discussed with the patient, including the plan of care. I explained that further testing and/ or monitoring is indicated based on the patient's history, examination, and/ or laboratory findings. Therefore, I recommended admission for additional evaluation. The patient expressed understanding and was agreeable with this plan. The patient was admitted to the hospital in stable condition and sent to a bed under the care of [facility]. Medical Screen Exam Complete: Yes Emergency Medical Condition: Yes Differential Diagnosis Differential Diagnosis: Coronary syndrome, versus chest wall strain, versus costochondritis, versus pleurisy, versus pulmonary embolism, versus acid reflux , versus anxiety disorder Medical Records Medical records reviewed: Yes I reviewed the patient's medical records. Lab Data Lab results reviewed: Yes I reviewed the patient's lab results. Result diagrams: 01/15/18 22:52 01/15/18 22:52 POC Results POC Urine Results Negative Lab Results 01/15/18 01/15/18 01/15/18 Range/Units 22:52 22:52 22:52 WBC 7.0 (4.0-11.0) th/mm3 RBC 4.76 (4.00-5.30) mil/mm3 Hgb 13.4 (11.6-15.3) gm/dL Hct 40.2 (35.0-46.0) % MCV 84.6 (80.0-100.0) fL MCH 28.3 (27.0-34.0) pg MCHC 33.4 (32.0-36.0) % RDW 14.0 (11.6-17.2) % Plt Count 314 (150-450) th/mm3 MPV 8.9 (7.0-11.0) fL Neut % (Auto) 63.0 (16.0-70.0) % Lymph % (Auto) 29.1 (9.0-44.0) % [place] % (Auto) 6.1 (0.0-8.0) % Eos % (Auto) 1.3 (0.0-4.0) % Baso % (Auto) 0.5 (0.0-2.0) % Neut # (Auto) 4.4 (1.8-7.7) th/mm3 Lymph # (Auto) 2.1 (1.0-4.8) th/mm3 [place] # (Auto) 0.4 (0.0-0.9) th/mm3 Eos # (Auto) 0.1 (0.0-0.4) th/mm3 Baso # (Auto) 0.0 (0.0-0.2) th/mm3 WBC Differential . Differential Comment Auto diff final PT 10.4 (9.8-11.6) sec INR 1.0 Ratio APTT 26.0 (24.3-30.1) sec D-Dimer Quant (PE/DVT) 0.20 (0.00-0.50) mg/L FEU Sodium (136-145) meq/L Potassium (3.5-5.1) meq/L Chloride (98-107) meq/L Carbon Dioxide (21.0-32.0) meq/L Anion Gap (5-15) meq/L BUN (7-18) mg/dL Creatinine (0.50-1.00) mg/dL Estimated GFR (>89) mL/min Random Glucose (74-106) mg/dL Calcium (8.5-10.1) mg/dL Magnesium (1.5-2.5) mg/dL Total Bilirubin (0.2-1.0) mg/dL AST (15-37) U/L ALT (10-53) U/L Alkaline Phosphatase (45-117) U/L Total Creatine Kinase (26-192) U/L CK-MB (CK-2) (0.5-3.6) ng/mL CK-MB (CK-2) % (0.0-4.0) % Troponin I (0.02-0.05) ng/mL B-Natriuretic Peptide Less than 2 (0-100) pg/mL Total Protein (6.4-8.2) g/dL Albumin (3.4-5.0) g/dL Lipase (73-393) U/L 01/15/18 Range/Units 22:52 WBC (4.0-11.0) th/mm3 RBC (4.00-5.30) mil/mm3 Hgb (11.6-15.3) gm/dL Hct (35.0-46.0) % MCV (80.0-100.0) fL MCH (27.0-34.0) pg MCHC (32.0-36.0) % RDW (11.6-17.2) % Plt Count (150-450) th/mm3 MPV (7.0-11.0) fL Neut % (Auto) (16.0-70.0) % Lymph % (Auto) (9.0-44.0) % [place] % (Auto) (0.0-8.0) % Eos % (Auto) (0.0-4.0) % Baso % (Auto) (0.0-2.0) % Neut # (Auto) (1.8-7.7) th/mm3 Lymph # (Auto) (1.0-4.8) th/mm3 [place] # (Auto) (0.0-0.9) th/mm3 Eos # (Auto) (0.0-0.4) th/mm3 Baso # (Auto) (0.0-0.2) th/mm3 WBC Differential Differential Comment PT (9.8-11.6) sec INR Ratio APTT (24.3-30.1) sec D-Dimer Quant (PE/DVT) (0.00-0.50) mg/L FEU Sodium 140 (136-145) meq/L Potassium 3.8 (3.5-5.1) meq/L Chloride 107 (98-107) meq/L Carbon Dioxide 24.2 (21.0-32.0) meq/L Anion Gap 9 (5-15) meq/L BUN 17 (7-18) mg/dL Creatinine 0.90 (0.50-1.00) mg/dL Estimated GFR 83 L (>89) mL/min Random Glucose 81 (74-106) mg/dL Calcium 9.1 (8.5-10.1) mg/dL Magnesium 2.3 (1.5-2.5) mg/dL Total Bilirubin 0.5 (0.2-1.0) mg/dL AST 28 (15-37) U/L ALT 24 (10-53) U/L Alkaline Phosphatase 73 (45-117) U/L Total Creatine Kinase 480 H (26-192) U/L CK-MB (CK-2) 3.0 (0.5-3.6) ng/mL CK-MB (CK-2) % 0.6 (0.0-4.0) % Troponin I Less than 0.02 L (0.02-0.05) ng/mL B-Natriuretic Peptide (0-100) pg/mL Total Protein 8.3 H (6.4-8.2) g/dL Albumin 3.8 (3.4-5.0) g/dL Lipase 168 (73-393) U/L Imaging Data Radiologist's impression: Chest X-Ray 01/15/18 22:00 CONCLUSION: No acute cardiopulmonary process. ECG Data Attestation: I personally reviewed and interpreted this ECG as follows: Interpretation: The patient had an EKG done on arrival. The patient's EKG shows a sinus rhythm with a sinus arrhythmia heart rate of 74, QRS duration is 81 ms, QTC [address] segment elevation, T waves are inverted in V1. Discharge Plan Discharge Disposition Patient Disposition: 30 Still Patient Discharge Details Diagnosis: Chest pain, rule out acute myocardial infarction Physicians Team ED Provider: Sylwia Galan Primary Care Provider: Bridget Roland, Attending Provider: Jeanette Vega Discharge Interventions Interventions: Vital Signs Last Done: 01/15/18 23:00 Status ED Status: Admitted Observation Patient
--- NOTE | 2018-01-15 22:44 | XR ---
EXAM DATE: 01/15/2018 10:00 PM EDT AGE/SEX: 42 years / Female INDICATIONS: Chest pain tonight. CLINICAL DATA: This is the patient's initial encounter. Patient reports that signs and symptoms have been present for 1 day and indicates a pain score of 9/10. MEDICAL/SURGICAL HISTORY: None. None. COMPARISON: [facility] – [place], [place], CHEST SINGLE AP, 05/28/2017. . FINDINGS: A single AP view of the chest demonstrates the lungs to be symmetrically aerated without evidence of mass, infiltrate or effusion. The cardiomediastinal contours are unremarkable. Osseous structures a re intact. CONCLUSION: No acute cardiopulmonary process. Electronically signed by: Jose E Ley MD 01/15/2018 10:43 PM EDT
[2018-01-15 23:35] LABS: Baso % (Auto) 0.5 % (0.0-2.0); Eos # (Auto) 0.1 th/mm3 (0.0-0.4); Eos % (Auto) 1.3 % (0.0-4.0); Hematocrit 40.2 % (35.0-46.0); Hemoglobin 13.4 gm/dL (11.6-15.3); Lymph # (Auto) 2.1 th/mm3 (1.0-4.8); Lymph % (Auto) 29.1 % (9.0-44.0); Mean Corpuscular HGB Conc 33.4 % (32.0-36.0); Mean Corpuscular Hemoglobin 28.3 pg (27.0-34.0); Mean Corpuscular Volume 84.6 fL (80.0-100.0); Mean Platelet Volume 8.9 fL (7.0-11.0); Mono # (Auto) 0.4 th/mm3 (0.0-0.9); Mono % (Auto) 6.1 % (0.0-8.0); Neut # (Auto) 4.4 th/mm3 (1.8-7.7); Platelet Count 314 th/mm3 (150-450); Red Blood Count 4.76 mil/mm3 (4.00-5.30)
[2018-01-15 23:52] LABS: D-Dimer 0.2 mg/L FEU (0.00-0.50); Prothrombin Time 10.4 sec (9.8-11.6)
[2018-01-16] LABS: Anion Gap 9 meq/L (5-15); Blood Urea Nitrogen 17 mg/dL (7-18); Calcium 9.1 mg/dL (8.5-10.1); Carbon Dioxide 24.2 meq/L (21.0-32.0); Chloride 107 meq/L (98-107); Glomerular Filtration Rate 83 mL/min (>89); Glucose,Random 81 mg/dL (74-106); Magnesium 2.3 mg/dL (1.5-2.5); Sodium 140 meq/L (136-145)
[2018-01-16 00:01] LABS: Alanine Aminotransferase 24 U/L (10-53); Albumin 3.8 g/dL (3.4-5.0); Alkaline Phosphatase 73 U/L (45-117); Aspartate Aminotransferase 28 U/L (15-37); Creatine Kinase 480 U/L (26-192); Lipase 168 U/L (73-393); Potassium 3.8 meq/L (3.5-5.1); Total Protein 8.3 g/dL (6.4-8.2)
[2018-01-16 00:13] LABS: CKMB Percent 0.6 % (0.0-4.0)
[2018-01-16] MEDS ORDERED: Acetaminophen 500 MG Tablet PO PRN (01:14)
[2018-01-16 03:41] LABS: Creatine Kinase 357 U/L (26-192)
[2018-01-16 03:53] LABS: CKMB Percent 0.8 % (0.0-4.0); Creatine Kinase MB 2.7 ng/mL (0.5-3.6)
--- NOTE | 2018-01-16 06:42 | ECG ---
Date Performed: 01/15/2018 Time Performed: 19:39:49 PTAGE: 42 years EKG: Sinus rhythm WITH SINUS ARRHYTHMIA NORMAL ECG No significant change from prior electrocardiogram. PREVIOUS TRACING : 06/04/2017 13.30 DOCTOR: Joaquin Ash Interpretating Date/Time 01/16/2018 06:40:46
[2018-01-16 07:22] VITALS: BP 96/54; RESP 16; TEMP 98.8; O2SAT 99
--- NOTE | 2018-01-16 08:23 | P.HPCA ---
History of Present Illness Primary Care Physician: Bridgetkwame Roland Chief Complaint: Chest pain History of Present Illness: 42-year-old female with history of hypertension, bipolar disorder, asthma, anxiety, and depression presents emergency room for further evaluation of chest pain. Onset yesterday morning. Location substernal. Characterizes sharp. Duration 5 hours. Talking or movement made pain worse. No associated symptoms of nausea, vomiting, diaphoresis, or dyspnea. Denies similar pain in the past. No recent illness, injury, or fever. Lifelong non-smoker. Endorses hypertension. No known diabetes, hyperlipidemia, coronary artery disease. Family history noncontributory for early onset cardiovascular disease. Past cardiac testing None Social history Known hypertension. No known hyperlipidemia, diabetes, or coronary artery disease. Lifelong non-smoker. No alcohol or recreational drug use. Family history Noncontributory for early onset cardiovascular disease. - Diagnosis (1) Atypical chest pain (2) Hypertension (3) Obesity (BMI 30-39.9) Review of Systems All other systems reviewed negative except as stated in HPI PMFSH - History History Provided By: Patient - Medical History Medical History: Medical History (Last Updated 01/16/18 @ 09:48 by GUILLERMO Medley) Anxiety Asthma Bipolar 1 disorder Depression Hypertension - Surgical History Surgical History: Surgical History (Last Updated 01/16/18 @ 09:48 by GUILLERMO Medley) History of History of thyroidectomy History of tubal ligation - Family History Family History: Family History (Last Updated 01/16/18 @ 09:49 by GUILLERMO Medley) Grandparent Hypertension Mother Hypertension - Social History I have reviewed the patient's Social History: Yes - Tobacco History Second Hand Smoke Exposure: No Tobacco Use In Past 30 Days: No Smoking Status: Never smoker Tobacco Type: Cigarettes - Alcohol History How Often Do You Have a Drink Containing Alcohol: Never - Substance Use History Substance History: No History of Abuse - Travel History History of Recent Travel: No Recent Travel in the [place] Within the Last 8 Weeks: No Recent Travel Out of the Country Within the Last 8 Weeks: No - Immunization History Tetanus Immunization: Unsure Tetanus Immunization Year if Known: 2017 Medications and Allergies Active Medications: Active Medications Acetaminophen (Tylenol) 500 mg PO Q4H PRN PRN Reason: HEADACHE Sodium Chloride (Ns Flush) 2 ml IV.FLUSH UNSCH PRN PRN Reason: FLUSH AFTER USING IV ACCESS Sodium Chloride (Ns Flush) 2 ml IV.FLUSH BID JESUS Sodium Chloride (Ns Flush) 2 ml IV.FLUSH PRN PRN PRN Reason: FLUSH AFTER USING IV ACCESS Allergies Allergy/AdvReac Type Severity Reaction Status Date / Time aspirin Allergy Hives Verified 01/15/18 19:32 Exam Vital signs: Vital Signs 01/15/18 19:32 01/15/18 21:39 01/15/18 22:00 Temperature 99.4 F Pulse Rate 71 69 72 Respiratory Rate 18 18 18 Blood Pressure 117/73 127/77 127/77 Pulse Oximetry 100 96 100 01/15/18 22:16 01/15/18 23:00 01/16/18 06:05 Temperature Pulse Rate 81 90 86 Respiratory Rate 18 20 16 Blood Pressure 127/77 116/77 108/55 L Pulse Oximetry 100 100 99 01/16/18 06:52 01/16/18 07:20 Temperature 98.1 F 98.8 F Pulse Rate 81 66 Respiratory Rate 18 16 Blood Pressure 97/63 L 96/54 L Pulse Oximetry 100 99 Intake & Output 01/15/18 01/16/18 01/16/18 18:59 06:59 18:59 Intake Total 500 / 500 Balance 500 / 500 Weight 94.347 kg Intake: IV 500 / 500 NS Inj 500 ML @ Wide Open IV. 500 / 500 SIG ONCE ONE Rx#:[id number] Other: Weight On Admission 94.347 kg Narrative: GENERAL: Alert WN, WD, NAD, obese, -Citizen Of [place] female HEAD: NC, AT NECK: Supple, no masses, trachea midline CV: RRR, without murmur, rub, gallop, no JVD, S1-S2. Chest wall nontender to palpation. RESP: Clear lungs throughout bilateral, no crackles, wheeze, rhonchi, symmetrical chest rise, nonlabored, able to speak in full sentences ABD: Soft, NT, ND, no masses, positive bowel tones EXT: Pulses +2x4, trace dependent edema MS: Normal tone x4 extremities, nontender, no obvious deformities, full range of motion NEURO: CN II through CN XII grossly intact, motor strength 5/5 PSYCH: A+O x3, flat affect, appropriate speech, mood, insight and judgment SKIN: Normal turgor, normal texture, no lesions, no rashes Results 01/15/18 22:52 01/15/18 22:52 Cardiac Enzymes 01/15/18 01/15/18 01/16/18 Range/Units 22:52 22:52 03:03 AST 28 (15-37) U/L CK-MB (CK-2) 3.0 2.7 (0.5-3.6) ng/mL Troponin I Less than 0.02 L Less than 0.02 L (0.02-0.05) ng/mL B-Natriuretic Peptide Less than 2 (0-100) pg/mL Coagulation 01/15/18 01/15/18 Range/Units 22:52 22:52 PT 10.4 (9.8-11.6) sec APTT 26.0 (24.3-30.1) sec B-Natriuretic Peptide Less than 2 (0-100) pg/mL CBC 01/15/18 Range/Units 22:52 WBC 7.0 (4.0-11.0) th/mm3 RBC 4.76 (4.00-5.30) mil/mm3 Hgb 13.4 (11.6-15.3) gm/dL Hct 40.2 (35.0-46.0) % Plt Count 314 (150-450) th/mm3 Neut # (Auto) 4.4 (1.8-7.7) th/mm3 Lymph # (Auto) 2.1 (1.0-4.8) th/mm3 [place] # (Auto) 0.4 (0.0-0.9) th/mm3 Eos # (Auto) 0.1 (0.0-0.4) th/mm3 Baso # (Auto) 0.0 (0.0-0.2) th/mm3 Comprehensive Metabolic Panel 01/15/18 Range/Units 22:52 Sodium 140 (136-145) meq/L Potassium 3.8 (3.5-5.1) meq/L Chloride 107 (98-107) meq/L Carbon Dioxide 24.2 (21.0-32.0) meq/L BUN 17 (7-18) mg/dL Creatinine 0.90 (0.50-1.00) mg/dL Calcium 9.1 (8.5-10.1) mg/dL AST 28 (15-37) U/L ALT 24 (10-53) U/L Alkaline Phosphatase 73 (45-117) U/L Total Protein 8.3 H (6.4-8.2) g/dL Albumin 3.8 (3.4-5.0) g/dL Intake and Output 01/15/18 01/16/18 01/16/18 22:59 06:59 14:59 Intake Total 500 / 500 Balance 500 / 500 Intake: IV 500 / 500 NS Inj 500 ML @ Wide Open IV. 500 / 500 SIG ONCE ONE Rx#:[id number] Other: Weight 94.347 kg 94.347 kg Weight On Admission 94.347 kg - Imaging and Cardiology Imaging: Impressions Chest X-Ray 01/15/18 22:00 CONCLUSION: No acute cardiopulmonary process. EKG interpretations - EKG EKG results cardiology: sinus rhythm, normal axis, normal QRS, normal ST/T Caprini VTE Risk Assessment Caprini VTE Risk Assessment: No/Low Risk (score <= 1) Caprini Risk Assessment Model: Point Value = 1 Point Value = 2 Point Value = 3 Point Value = 5 Age 41-60 Minor surgery BMI > 25 kg/m2 Swollen legs Varicose veins or History of unexplained or recurrent spontaneous Oral contraceptives or hormone replacement Sepsis (< 1 month) Serious lung disease, including pneumonia (< 1 month) Abnormal pulmonary function Acute myocardial infarction Congestive heart failure (< 1 month) History of inflammatory bowel disease Medical patient at bed rest Age 61-74 Arthroscopic surgery Major open surgery (> 45 min) Laparoscopic surgery (> 45 min) Malignancy Confined to bed (> 72 hours) Immobilizing plaster cast Central venous access Age >= 75 History of VTE Family history of VTE Factor V Leiden Prothrombin [id number] Lupus anticoagulant Anticardiolipin antibodies Elevated serum homocysteine Heparin-induced thrombocytopenia Other congenital or acquired thrombophilia Stroke (< 1 month) Elective arthroplasty Hip, pelvis, or leg fracture Acute spinal cord injury (< 1 month) Prophylaxis Regimen: Total Risk Factor Score Risk Level Prophylaxis Regimen 0-1 Low Early ambulation 2 Moderate Order ONE of the following: *Sequential Compression Device (SCD) *Heparin 5000 units SQ BID 3-4 Higher Order ONE of the following medications: *Heparin 5000 units SQ TID *Enoxaparin/Lovenox 40 mg SQ daily (WT < 150 kg, CrCl > 30 mL/min) *Enoxaparin/Lovenox 30 mg SQ daily (WT < 150 kg, CrCl > 10-29 mL/min) *Enoxaparin/Lovenox 30 mg SQ BID (WT < 150 kg, CrCl > 30 mL/min) AND/OR *Sequential Compression Device (SCD) 5 or more Highest Order ONE of the following medications: *Heparin 5000 units SQ TID (Preferred with Epidurals) *Enoxaparin/Lovenox 40 mg SQ daily (WT < 150 kg, CrCl > 30 mL/min) *Enoxaparin/Lovenox 30 mg SQ daily (WT < 150 kg, CrCl > 10-29 mL/min) *Enoxaparin/Lovenox 30 mg SQ BID (WT < 150 kg, CrCl > 30 mL/min) AND *Sequential Compression Device (SCD) Assessment and Plan - Assessment (1) Atypical chest pain Code(s): R07.89 - Other chest pain Status: Acute Plan: Admitted chest pain center. Monitor on telemetry overnight. ACS ruled out 3 sets of EKGs and cardiac enzymes. Seen and evaluated by Dr. Pavan Espinoza. Proceed with Lexiscan this morning. If unremarkable, plans are to discharge home with follow-up with her primary care provider. Patient agreeable to plan of care. (2) Hypertension Code(s): I10 - Essential (primary) hypertension Status: Chronic Plan: Continue hydrochlorothiazide. Encourage weight loss and following a low-sodium diet. (3) Obesity (BMI 30-39.9) Code(s): E66.9 - Obesity, unspecified Status: Chronic Plan: Encouraged weight loss, lifestyle and dietary modifications. H&P: Quality - VTE Deep Vein Thrombosis/Pulmonary Embolism Present on Admission: No (2) Hypertension Qualifiers: Hypertension type: unspecified Qualified Code(s): I10 - Essential (primary) hypertension
[2018-01-16 08:30] LABS: Creatine Kinase 352 U/L (26-192)
[2018-01-16 08:42] LABS: CKMB Percent 0.7 % (0.0-4.0); Creatine Kinase MB 2.5 ng/mL (0.5-3.6)
[2018-01-16] MEDS ORDERED: Regadenoson Inj 0.4 MG/5 ML Syringe IV.PUSH ONE (10:51)
--- NOTE | 2018-01-16 12:34 | NM ---
EXAM DATE: 01/16/2018 9:17 AM EDT AGE/SEX: 42 years / Female INDICATIONS:Angina. . Sub-sternal chest pain with dyspnea, nausea and vomiting. CLINICAL DATA: This is the patient's initial encounter. Patient reports that signs and symptoms have been present for 1 day and indicates a pain score of 9/10. MEDICAL/SURGICAL HISTORY: Hypertension. Tubal ligation. Thyroidectomy. COMPARISON: [facility], US ARM RIGHT VENOUS DOPPLER, 06/02/2017. . DOSE: 8.5 mCi Tc 99m Myoview at rest 27.3 mCi [id number] at stress 0.4 mg Lexiscan STRESS SYMPTOMS: Sleepy. EJECTION FRACTION: 52 % TECHNIQUE: The patient underwent pharmacologic stress with infusion of prescribed dose. Continuous ECG tracing was monitored during stress. Gated SPECT imaging was performed after stress and conventi onal SPECT imaging was performed at rest. The examination was performed on a SPECT/CT scanner, both attenuation and non-corrected datasets were reviewed. FINDINGS: Distribution: The maximum perfused segment at stress is in the lateral wall. Perfusion Study: The pattern of perfusion at stress is within normal limits. Gated Study: Slight focal hypokinesia in the apical wall. The ejection fraction is calculated at 52 %. RISK CATEGORY: Low (<1% Annual Motality Rate) CONCLUSION: 1. No significant stress-induced ischemia. 2. Slight focal apical hypokinesia with EF of 52%. Electronically signed by: Lv Duckworth MD 01/16/2018 12:33 PM EDT
[2018-01-16 14:48] VITALS: PULSE 60
--- NOTE | 2018-01-17 08:08 | ECG ---
Date Performed: 01/16/2018 Time Performed: 02:24:13 PTAGE: 42 years EKG: Sinus rhythm WITH SINUS ARRHYTHMIA NORMAL ECG PREVIOUS TRACING : 01/15/2018 22.51 Since previous tracing, no significant change noted DOCTOR: Pavan Espinoza Interpretating Date/Time 01/17/2018 08:06:21
--- NOTE | 2018-01-17 08:09 | ECG ---
Date Performed: 01/16/2018 Time Performed: 06:44:49 PTAGE: 42 years EKG: Sinus rhythm WITH SINUS ARRHYTHMIA NORMAL ECG PREVIOUS TRACING : 01/16/2018 02.24 Since previous tracing, no significant change noted DOCTOR: Pavan Espinoza Interpretating Date/Time 01/17/2018 08:07:03
--- NOTE | 2018-01-17 08:09 | TR ---
Date Performed: 01/16/2018 Time Performed: 11:05:33 DOCTOR: Pavan Espinoza DRUG LIST: CLINICAL HISTORY: REASON FOR TEST: REASON FOR ENDING: OBSERVATION: CONCLUSION: COMMENTS: Lexiscan stress test was performed under standard four minute protocol. Radionuclide was injected one minute prior to ending the test. No electrocardiographic abormalities were present t o suggest ischemia. Nuclear imaging and interpretation are pending.
--- NOTE | 2018-01-17 12:38 | ECG ---
Date Performed: 01/15/2018 Time Performed: 22:51:11 PTAGE: 42 years EKG: Sinus rhythm WITH SINUS ARRHYTHMIA NORMAL ECG No significant change from prior electrocardiogram. PREVIOUS TRACING : 01/15/2018 19.39 DOCTOR: Joaquin Ash Interpretating Date/Time 01/17/2018 12:36:50
== END 2018-01-16 13:45 | disposition home or self-care (01) ==
LOC: NEDA 18:57 → NEPC 18:57 → NEDA 01-16 01:23 → NEDH 01-16 04:12 → NEPGCP 01-16 06:24
PROVIDERS: ADMIT Internal Medicine Interventional Cardiology; ATTEND Internal Medicine Interventional Cardiology